=== PATIENT | male | born 1950 | race Caucasian/White ===

== ENCOUNTER 2019-05-01 18:23 | Inpatient (IN) | payer MEDICARE, OTHER, SELFPAY ==
[2019-05-03 02:24] VITALS: BP 153/82; PULSE 77; RESP 17; TEMP 36.5; O2SAT 94
[2019-05-03 04:59] LABS: Add RBC Morph No
[2019-05-03 05:06] LABS: Basophils % 0.4 %; Eosinophils # 0.2 10^3/uL (0.0-0.8); Eosinophils % 2.2 %; Hematocrit 40.4 % (42.0-52.0); Hemoglobin 13.6 g/dL (11.7-16.6); Lymphocytes # 1.8 10^3/uL (0.8-4.8); Mean Corpuscular HGB Conc 33.7 g/dL (30.0-36.0); Mean Corpuscular Hemoglobin 31.6 pg (28.0-34.0); Mean Platelet Volume 9.4 fL (7.4-10.4); Monocytes # 0.7 10^3/uL (0.2-0.9); Monocytes % 10.2 %; Neutrophils # 4.2 10^3/uL (1.8-7.7); Neutrophils % 60.8 %; Nucleated Red Blood Cells % 0 %; Platelet Count 187 10^3/cmm (130-400); Red Cell Distribution Width 12.7 % (12.1-15.1)
[2019-05-03 05:35] LABS: Alanine Aminotransferase 20 U/L (0-41); Albumin Level 4.4 g/dL (3.5-5.2); Alkaline Phosphatase 75 IU/L (40-130); Anion Gap 13.1 (5-19); Aspartate Amino Transferase 14 U/L (0-40); Blood Urea Nitrogen 14 mg/dL (8-23); Calcium 9.5 mg/Dl (8.8-10.2); Carbon Dioxide 24 mmol/L (22-29); Chloride 104 mmol/L (98-107); Creatinine Clr Calc Pharmacy 107.5425; Globulin 1.7 g/dL (1.3-4.6); Glomerular Filtration Rate 96.1 mL/min (90-130); Glucose 188 mg/dL (74-106); Potassium 4.1 mmol/L (3.5-5.1); Sodium 137 mmol/L (136-145); Total Bilirubin 0.6 mg/dL (0.15-1.2); Total Protein 6.1 g/dL (6.6-8.7)
[2019-05-03 06:54] VITALS: BP 144/70; PULSE 81; RESP 18; TEMP 36.8; O2SAT 94
--- NOTE | 2019-05-03 08:42 | P.PN_ITS ---
Subjective Subjective: Interval history: Nii has had an uneventful night. No further chest pain. He has been up and around some. No syncope or presyncope. The right radial artery site is unremarkable. No pain or bleeding. Medications: Reviewed: Yes Vitals/I&O/Wt Last Vital Signs Temp 98.3 F 05/03/19 06:54 Pulse 81 05/03/19 06:54 Resp 18 05/03/19 06:54 BP 144/70 05/03/19 06:54 Pulse Ox 94 05/03/19 06:54 05/02/19 05/03/19 05/03/19 22:59 06:59 14:59 Intake Total 400 / 400 360 / 360 Balance 400 / 400 360 / 360 Weight last 48 hrs Weight 240 lb Weight 240 lb 6.08 oz Physical Exam Const: COMMON NORMALS: no apparent distress, average body habitus, oriented x3, no limitations, healthy appearing, alert and well nourished HENMT: COMMON NORMALS: normocephalic, head/scalp atraumatic, hearing grossly normal bilaterally, external ears normal, EAC's normal, TM's normal bilaterally, external nose normal, nasal mucous membranes and turbinates normal, moist oral mucous membranes, oropharynx normal, dentition normal and gingiva normal HEAD & SCALP: normocephalic and atraumatic NOSE: external nose normal and nasal mucous membranes and turbinates normal EXTERNAL EAR: Yes external ears normal EXTERNAL AUDITORY CANAL: EAC's normal TYMPANIC MEMBRANE: TM's normal bilaterally Eye: COMMON NORMALS: PERRL, EOMs intact bilaterally, conjunctivae normal, no scleral icterus, no papilledema, normal visual chun by confrontation and fundi normal bilaterally CONJUNCTIVA: Yes conjunctivae normal PUPIL: Yes PERRL DIRECT OPHTHALMOSCOPY: Yes no papilledema and Yes fundi normal bilaterally Neck/C-Spine: COMMON NORMALS: full ROM, no lymphadenopathy, supple, no meningeal signs, thyroid normal and no carotid bruits THYROID: thyroid normal Chest: COMMONS NORMALS: inspection of chest normal, palpation of chest normal, inspection of breasts normal and palpation of breasts normal Resp: COMMON NORMALS: normal respiratory effort, no retractions, no use of accessory muscles, clear to auscultation bilaterally and percussion normal AUSCULTATION: clear to auscultation bilaterally PERCUSSION: percussion normal GI: COMMON NORMALS: normal to inspection, nondistended, normoactive bowel sounds, soft to palpation, non-tender, no hepatosplenomegaly, no masses and no bruits PALPATION: Yes soft and Yes no hepatosplenomegaly : COMMON NORMALS: Yes external exam normal, Yes testes normal, Yes scrotum normal, Yes no scrotal swelling and Yes no hernias present Extremity: COMMON NORMALS: normal to inspection, full ROM, normal capillary refill, no joint enlargement, no clubbing, cyanosis or edema, no calf tenderness and no pedal edema OTHER: The right radial artery entry site is without sw elling, bleeding or hematoma. There is a 3+ pulse in this area. Neuro: COMMON NORMALS: oriented x3 SENSORIUM/ORIENTATION: Yes alert MENINGEAL SIGNS: Yes no meningeal signs Skin: COMMON NORMALS: no rashes or lesions noted, no wounds, skin turgor normal, no jaundice, no petechiae and no mottling GENERAL SKIN EXAM: no rashes or lesions noted and turgor normal Data Labs: Other Labs: All Labs last 24 hrs except CBC/BMP 05/02/19 05/02/19 05/02/19 02:46 09:38 11:20 RBC MCV MCH MCHC RDW MPV Neut % (Auto) Lymph % (Auto) [place] % (Auto) Eos % (Auto) Baso % (Auto) Neut # (Auto) Lymph # (Auto) [place] # (Auto) Eos # (Auto) Baso # (Auto) Nucleated RBC % (a uto) Nucleated RBCs # GFR Calculation POC Glucose 174 H 167 H Calcium Total Bilirubin AST ALT Alkaline Phosphata se Total Protein Albumin Globulin Triglycerides 195 H Cholesterol 195 LDL Cholesterol, C alc 114 HDL Cholesterol 42 L LDL/HDL Ratio 2.71 Cholesterol/HDL Ra marly 4.64 05/02/19 05/02/19 05/03/19 17:09 20:46 04:39 RBC MCV MCH MCHC RDW MPV Neut % (Auto) Lymph % (Auto) [place] % (Auto) Eos % (Auto) Baso % (Auto) Neut # (Auto) Lymph # (Auto) [place] # (Auto) Eos # (Auto) Baso # (Auto) Nucleated RBC % (a uto) Nucleated RBCs # GFR Calculation 96.1 POC Glucose 150 H 162 H Calcium 9.5 Total Bilirubin 0.6 AST 14 ALT 20 Alkaline Phosphata se 75 Total Protein 6.1 L Albumin 4.4 Globulin 1.7 Triglycerides Cholesterol LDL Cholesterol, C alc HDL Cholesterol LDL/HDL Ratio Cholesterol/HDL Ra marly 05/03/19 04:39 RBC 4.30 MCV 94.0 MCH 31.6 MCHC 33.7 RDW 12.7 MPV 9.4 Neut % (Auto) 60.8 Lymph % (Auto) 26.0 [place] % (Auto) 10.2 Eos % (Auto) 2.2 Baso % (Auto) 0.4 Neut # (Auto) 4.2 Lymph # (Auto) 1.8 [place] # (Auto) 0.7 Eos # (Auto) 0.2 Baso # (Auto) 0.0 Nucleated RBC % (a uto) 0 Nucleated RBCs # 0.0 GFR Calculation POC Glucose Calcium Total Bilirubin AST ALT Alkaline Phosphata se Total Protein Albumin Globulin Triglycerides Cholesterol LDL Cholesterol, C alc HDL Cholesterol LDL/HDL Ratio Cholesterol/HDL Ra marly A&P Additional A&P Information Additional A&P Information: Severe aortic stenosis Nonobstructive coronary artery disease Hypertension Dyslipidemia Diabetes mellitus Prior tobacco abuse COPD Obesity Alcohol overuse Plan: I will add a long-acting nitrate today. From a cardiac standpoint, he can go home on the current medications plus the long-acting nitrate. He should not lift anything more than 5 pounds for 2 days with the right arm. Otherwise he can have essentially normal activity aside from vigorous activities. Tomorrow, I will call [facility] in [place] and get him set up to be seen for consideration for TAVR. I will take a copy of the ultrasound and the cardiac catheterization and send them over. We will set him up for an appointment in about a week to check his right radial artery site and his chemistry panel. 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
[2019-05-03] MEDS: sodium chloride 0.9% 1,000 ML 100 ML IV ×2 (09:24→09:32)
[2019-05-03] MEDS: metoprolol tartrate 25 mg Tablet 12.5 MG PO (09:26)
[2019-05-03] MEDS: famotidine 20 mg Tablet PO (09:26)
[2019-05-03] MEDS: aspirin 325 mg EC Tablet PO (09:26)
[2019-05-03] MEDS: isosorbide mononitrate ER 30 mg Tablet PO (09:30)
[2019-05-03 11:00] VITALS: BP 129/70; PULSE 72; RESP 13; TEMP 36.6; O2SAT 94
[2019-05-03 12:31] LABS: Glucose Point of Care 166 mg/dL (70-110)
[2019-05-03 12:31] LABS: Glucose Point of Care 185 mg/dL (70-110)
--- NOTE | 2019-05-03 13:21 | PM.DCS ---
Discharge Providers Date of Admission: 05/02/19 09:15 Date of Discharge: 05/03/19 Attending Provider at Admission: Flako Rivero MD Attending Provider at Discharge: Flako Rivero MD Primary Care Provider: Dimitris Greenfield Jr, MD Diagnoses at Discharge Discharge Diagnosis (1) Aortic stenosis, severe: Status: Acute Problem details: Refer for TAVR to [place]. Cardiology to arrange (2) Hypertension: Status: Acute Problem details: Controlled Reason for Visit Reason for Visit: Reason For Visit: Angina;Aortic Stenosis Hospital Course Hospital Course: Nii is a 68-year-old male that presented to the hospital with chest pain. Troponin was slightly elevated. Symptoms were very concerning for unstable angina. Cardiology was consulted. Angiogram was performed on May 02. This demonstrated severe aortic stenosis, nonobstructive coronary disease. It was thought he could benefit from TAVR. The following day, with no direct complications from angiogram and normal creatinine it was thought he could be discharged to home, for follow-up in [place] for consideration of TAVR. Physical Exam Narrative: EXAM NARRATIVE: General exam no apparent distress Cardiovascular regular rate and rhythm with a 3/6 systolic murmur Lungs clear Abdomen is soft with positive bowel sounds Extremities no cyanosis clubbing or edema Discharge Data Data Completed and Pending: Labs from last 24 hours 05/03/19 05/03/19 05/03/19 11:54 08:09 04:39 WBC 7.0 RBC 4.30 Hgb 13.6 Hct 40.4 L MCV 94.0 MCH 31.6 MCHC 33.7 RDW 12.7 Plt Count 187 MPV 9.4 Neut % (Auto) 60.8 Lymph % (Auto) 26.0 [place] % (Auto) 10.2 Eos % (Auto) 2.2 Baso % (Auto) 0.4 Neut # (Auto) 4.2 Lymph # (Auto) 1.8 [place] # (Auto) 0.7 Eos # (Auto) 0.2 Baso # (Auto) 0.0 Nucleated RBC % (a uto) 0 Nucleated RBCs # 0.0 Sodium Potassium Chloride Carbon Dioxide Anion Gap BUN Creatinine GFR Calculation Glucose POC Glucose 185 166 Calcium Total Bilirubin AST ALT Alkaline Phosphata se Total Protein Albumin Globulin Triglycerides Cholesterol LDL Cholesterol, C alc HDL Cholesterol LDL/HDL Ratio Cholesterol/HDL Ra marly 05/03/19 05/02/19 05/02/19 04:39 20:46 17:09 WBC RBC Hgb Hct MCV MCH MCHC RDW Plt Count MPV Neut % (Auto) Lymph % (Auto) [place] % (Auto) Eos % (Auto) Baso % (Auto) Neut # (Auto) Lymph # (Auto) [place] # (Auto) Eos # (Auto) Baso # (Auto) Nucleated RBC % (a uto) Nucleated RBCs # Sodium 137 Potassium 4.1 Chloride 104 Carbon Dioxide 24 Anion Gap 13.1 BUN 14 Creatinine 0.8 GFR Calculation 96.1 Glucose 188 H POC Glucose 162 H 150 H Calcium 9.5 Total Bilirubin 0.6 AST 14 ALT 20 Alkaline Phosphata se 75 Total Protein 6.1 L Albumin 4.4 Globulin 1.7 Triglycerides Cholesterol LDL Cholesterol, C alc HDL Cholesterol LDL/HDL Ratio Cholesterol/HDL Ra marly 05/02/19 05/02/19 05/02/19 11:20 09:38 02:46 WBC RBC Hgb Hct MCV MCH MCHC RDW Plt Count MPV Neut % (Auto) Lymph % (Auto) [place] % (Auto) Eos % (Auto) Baso % (Auto) Neut # (Auto) Lymph # (Auto) [place] # (Auto) Eos # (Auto) Baso # (Auto) Nucleated RBC % (a uto) Nucleated RBCs # Sodium Potassium Chloride Carbon Dioxide Anion Gap BUN Creatinine GFR Calculation Glucose POC Glucose 167 H 174 H Calcium Total Bilirubin AST ALT Alkaline Phosphata se Total Protein Albumin Globulin Triglycerides 195 H Cholesterol 195 LDL Cholesterol, C alc 114 HDL Cholesterol 42 L LDL/HDL Ratio 2.71 Cholesterol/HDL Ra marly 4.64 Vitals: Last Vital Signs Temp 97.9 F 05/03/19 11:00 Pulse 72 05/03/19 11:00 Resp 13 05/03/19 11:00 BP 129/70 05/03/19 11:00 Pulse Ox 94 05/03/19 11:00 Discharge Plan Discharge Patient Disposition: Home, Self-Care Condition: Stable Prescriptions: New isosorbide mononitrate 30 mg Tablet Extended Release 24 Hr 30 mg PO DAILY Qty: 30 RF: 0 metoprolol tartrate 25 mg Tablet 12.5 mg PO BID Qty: 60 RF: 0 Discontinued sildenafil 100 mg tablet 100 mg PO PRN PRN (Reason: Erectile Dysfunction) RF: 0 No Action Aspir-81 81 mg Tablet,Delayed Release (Dr/Ec) 81 mg PO DAILY RF: 0 simvastatin 20 mg tablet 20 mg PO BEDTIME RF: 0 metformin 1,000 mg Tablet 1,000 mg PO BID RF: 0 lisinopril 10 mg tablet 10 mg PO DAILY RF: 0 Discharge Orders: Discharge Order (Routine); Ordered 05/03/19 Ordered By: Flako Rivero Referrals: Dimitris Greenfield Jr, MD [Primary Care Provider] - 2 weeks (Keep regular follow-up with primary care provider) Discharge Diet: Diabetic Discharge Activity: Limit activity as instructed Activity Restrictions/Additional Instructions: No lifting over 5 pounds with the right arm for 2 days. My office will call him tomorrow to set up follow-up appointment for 1 week. I will make a referral to [facility] in [place] for consideration of TAVR. Do not take your metformin until Wednesday Discharge Attestations Time Spent in Discharge Care*: greater than 30 min Quality Metrics Clinical Quality Measures During this hospital stay, did patient experience: None Coding Level of Care Code Acute Horticultural Farmer for Sean Grace Diagnoses Aortic stenosis, severe I35.0 Hypertension I10
[2019-05-03 13:38] VITALS: BP 129/70; PULSE 72; RESP 13; TEMP 36.6; O2SAT 94
== END 2019-05-03 14:26 | disposition home or self-care (01) | DRG 287 ==
PROVIDERS: Admitting Provider Internal Medicine; Family Provider Family Medicine; PCP Family Medicine; Visit Provider Internal Medicine
DX: I35.0 Nonrheumatic aortic (valve) stenosis (principal); Z79.84 Long term (current) use of oral hypoglycemic drugs; Z79.82 Long term (current) use of aspirin; E11.9 Type 2 diabetes mellitus without complications; I10 Essential (primary) hypertension; E78.5 Hyperlipidemia, unspecified; E66.9 Obesity, unspecified; Z68.35 Body mass index [BMI] 35.0-35.9, adult; J44.9 Chronic obstructive pulmonary disease, unspecified; Z87.891 Personal history of nicotine dependence; I25.10 Atherosclerotic heart disease of native coronary artery without angina pectoris
CPT/HCPCS: 36415; 36416; 71045; 80053; 80061; 82962; 84443; 84484; 85025; 85610; 85730; 93005; 93306; 93460; 93571; 94664; 96372; 99284; 99285; C1751; C1769; C1887; C1894; G0378; J0153; J1644; J1650; J1815; J2001; J2250; J3010; J3490; J7030; Q0163; Q9967

== ENCOUNTER 2020-05-09 08:32 | Outpatient (CLI) | payer MEDICARE, OTHER, SELFPAY ==
--- NOTE | 2020-05-09 09:20 | CT_ITS ---
WS: [id number] CT ABDOMEN PELVIS TECHNIQUE: Contrast-enhanced CT of the abdomen and pelvis with coronal and sagittal reformatted image s. CLINICAL INFORMATION: RIGHT LOWER QUADRANT PAIN COMPARISON: None. DLP: 1217.[address] scans at [facility] use at least one of these dose optimization techniques: automat ed exposure control; mA and/or kV adjustment per patient size (includes targeted exams where dose is matched to clinical indication); or iterative reconstruction. FINDINGS: Diffuse fatty infiltration of the liver. Normal portal vein and splenic vein. Normal gallbladder. Nor mal gastroesophageal junction. Lung bases are well aerated. Splenic granulomas. Mild pancreatic atrop hy. Normal caliber abdominal aorta. Aortic calcification. Adrenal glands are normal. Normal renal enh ancement. No hydronephrosis. Small bilateral renal cysts. No obstructing renal or ureteral calculi. P elvic phleboliths. Sigmoid diverticulosis. No evidence of acute diverticulitis. No periaortic or retroperitoneal lymphad enopathy. No pelvic lymphadenopathy. No inguinal lymphadenopathy. Slight anterolisthesis L4 on L5 and L5 on S1. CT/CT abdomen pelvis w con* [id number] IMPRESSION: 1. Mild diffuse fatty infiltration of the liver. 2. No hydronephrosis in either kidney. Small bilateral renal cysts. 3. Sigmoid diverticulosis. No evidence of acute diverticulitis. 4. No evidence of high-grade small or large bowel obstruction. 5. No abdominal or pelvic lymphadenopathy. 6. Normal appendix in the right lower quadrant.
[2020-05-09] MEDS: iohexol 300 mg/mL 100 mL Btl IV ×2 (11:07→11:22)
== END 2020-05-09 08:33 | disposition home or self-care (01) ==
LOC: RADWPI 08:39
PROVIDERS: PCP Family Medicine; Visit Provider Family Medicine
DX: R10.31 Right lower quadrant pain (principal); K57.30 Diverticulosis of large intestine without perforation or abscess without bleeding; Q61.02 Congenital multiple renal cysts; K76.0 Fatty (change of) liver, not elsewhere classified
CPT/HCPCS: 74177; Q9967

== ENCOUNTER → 2020-06-27 15:45 | Outpatient (BNVA) | payer MEDICARE, OTHER, SELFPAY | PROVIDERS: PCP Family Medicine; Visit Provider Internal Medicine | DX: E11.9 Type 2 diabetes mellitus without complications (principal); Z86.010 Personal history of colon polyps; Z95.3 Presence of xenogenic heart valve; E78.5 Hyperlipidemia, unspecified; I10 Essential (primary) hypertension | CPT/HCPCS: 80053; 80061; 83036; 84443; 85025 ==

== ENCOUNTER → 2020-07-02 12:08 | Outpatient (BNVA) | payer MEDICARE, OTHER, SELFPAY | PROVIDERS: PCP Family Medicine; Visit Provider Internal Medicine | DX: Z01.84 Encounter for antibody response examination (principal) | CPT/HCPCS: 87635 ==

== ENCOUNTER 2020-07-08 08:00 | Day surgery (SDC) | payer MEDICARE, OTHER, SELFPAY ==
[2020-07-04 13:09] VITALS: BMI 32.1
[2020-07-08 08:20] VITALS: BP 140/88; PULSE 75; RESP 16; TEMP 36.4; O2SAT 97
[2020-07-08] MEDS: sodium chloride 0.9% 1,000 ML 30 ML IV (08:43)
[2020-07-08 08:45] LABS: Glucose Point of Care 216 mg/dL (70-110)
--- NOTE | 2020-07-08 08:48 | P.ANESASSM_ITS ---
Pre-Anesthetic Assessment Pre-Anesthetic Assessment: Height/Weight: Height 1.75 m Weight 98.883 kg Temp Pulse Resp BP Pulse Ox 97.5 F L 75 16 140/88 97 07/08/20 08:20 07/08/20 08:20 07/08/20 08:20 07/08/20 08:20 07/08/20 08:20 Preop Diagnosis: sc Proposed Procedure: Operation Date: 07/08/20 09:15 Proposed Procedures p Colonoscopy 15108 z86.010(Not Applicable) - Hao Traylor MD Last intake: Intake Last Liquid Date 07/07/20 Last Solid Date 07/07/20 Social: Social History: Alcohol and No tobacco Exam: Pre-Anes Outpt Exam: alert, oriented x 3, clear to auscultation bilaterally and regular rate & rhythm Airway: Submandibular: WNL Cervical ROM: WNL MP: 2 Dentition: Full History/ROS: No significant history except as noted and No significant complaints Pulmonary: Pulmonary: None reported CV/HEM: CV/HEM: HTN Comments: AVR last year : : None reported Hepatic: Hepatic: None reported GI: GI: None reported Metabolic: Metabolic: DM Musc/skel: Musc/skel: None reported Neuropsych: Neuropsych: None reported Anesthetic Plan: ASA status: 3 Anesthesia: Anesthesia Evaluation and MAC Risk of > 500 ml blood loss (7ml/kg in children): No Meds/Allergies Current Medications: Current Medications Generic Name Dose Route Start Last Admin Trade Name Freq PRN Reason Stop Dose Admin Sodium Chloride 1,000 mls @ 30 ml s/hr 07/08/20 08:15 07/08/20 08:43 Sodium Chloride 0.9% IV 30 mls/hr .Q24H AMAYA Administration PFSH Anesthesia PFSH: Medical History Aortic stenosis, severe Refer for TAVR to [place]. Cardiology to arrange Diabetes Dyslipidemia Hypertension Controlled Obesity BETO (obstructive sleep apnea) Surgical History H/O aortic valve replacement with porcine valve Family History Father Diabetes Social History Smoking and tobacco status: former smoker Alcohol intake: current Alcohol intake frequency: 3 or more drinks per day Alcohol type: beer Lives independently: Yes Household members: spouse Marital status: service: Yes branch: [employer] Current occupational status: retired Current gender identity: Male Data Anesthesia Other Labs: Laboratory Results - last 48 hr 07/08/20 08:40 POC Glucose 216 H Cardiac Studies: No Data to Display
--- NOTE | 2020-07-08 08:59 | W.PM.OPSUD ---
Surgery/Procedure H&P Update DATE OF PROCEDURE: July 08, 2020 DATE H&P PERFORMED: 06/27/20 PREOP DIAGNOSIS: sc PLANNED PROCEDURE: Operation Date: 07/08/20 09:15 Proposed Procedures p Colonoscopy 91674 z86.010(Not Applicable) - Hao Traylor MD
[2020-07-08 09:44] VITALS: BP 151/90; PULSE 69; RESP 18; TEMP 36.6; O2SAT 95
[2020-07-08 09:54] VITALS: BP 138/82; PULSE 65; RESP 18; O2SAT 97
--- NOTE | 2020-07-08 12:22 | ANE.PACU2 ---
Inpatient post-anesthesia follow up: Airway intact: Yes Vital signs: Temperature 97.9 F Pulse Rate 65 Respiratory Rate 18 Blood Pressure 138/82 Pulse Oximetry 97 Oxygen Delivery Me thod Room Air Oxygen Flow Rate 2 Fraction of Inspir ed Oxygen Hydration adequate: Yes Nausea and vomiting: No Pain level: 1 Mental status: Baseline
== END 2020-07-08 10:09 | disposition home or self-care (01) ==
PROVIDERS: PCP Family Medicine; Visit Provider Internal Medicine
PROC: 0DJD8ZZ Inspection of Lower Intestinal Tract, Via Natural or Artificial Opening Endoscopic (ICD-10-PCS; CPT 45378; principal; 2020-07-08 09:15)
DX: K57.30 Diverticulosis of large intestine without perforation or abscess without bleeding (principal); Z86.010 Personal history of colon polyps; Z95.3 Presence of xenogenic heart valve; E78.5 Hyperlipidemia, unspecified; I10 Essential (primary) hypertension; E11.9 Type 2 diabetes mellitus without complications; Z79.82 Long term (current) use of aspirin; Z79.84 Long term (current) use of oral hypoglycemic drugs; E66.9 Obesity, unspecified; Z68.32 Body mass index [BMI] 32.0-32.9, adult; G47.33 Obstructive sleep apnea (adult) (pediatric); Z87.891 Personal history of nicotine dependence
CPT/HCPCS: 36416; 45378; 82962; 96360; J2704; J7030

== ENCOUNTER 2020-07-24 08:17 | Outpatient (CLI) | payer OTHER, SELFPAY ==
--- NOTE | 2020-07-24 08:45 | USCV_ITS ---
Nii Hammond Age: 70 Gender: M : 1950 Exam Date: 07/24/2020 09:01 Ordering Phys: Eron Fay MD Technologist: Sheyla Real [place] [facility] [place]: HYPERTENSION, BP: 124 / 66 HR: 58 Rhythm: Sinus Technical Quality: Adequate MEASUREMENTS (Male / Female) Normal Values 2D ECHO LV Diastolic Diameter PLAX 4.0 cm 4.2 - 5.9 / 3.9 - 5.3 cm LV Systolic Diameter PLAX 1.6 cm IVS Diastolic Thickness 1.5 cm 0.6 - 1.0 / 0.6 - 0.9 cm IVS Systolic Thickness 2.3 cm LVPW Diastolic Thickness 1.4 cm 0.6 - 1.0 / 0.6 - 0.9 cm LVPW Systolic Thickness 2.0 cm LVOT Diameter 2.0 cm LV Ejection Fraction 2D Teich 90.2 % LV Ejection Fraction MOD 2C 62.3 % LV Ejection Fraction 2C AL 65.1 % LA Diameter 3.9 cm LA Width 3.5 cm LA Height 4.8 cm RA Width 3.0 cm RA Height 4.5 cm Aorta at Sinotubular Diameter 3.6 cm M-MODE LV Diastolic Diameter MM 4.4 cm 4.2 - 5.9 / 3.9 - 5.3 cm LV Systolic Diameter MM 2.4 cm LV Ejection Fraction MM Teich 77.7 % IVS Diastolic Thickness MM 1.4 cm 0.6 - 1.0 / 0.6 - 0.9 cm IVS Systolic Thickness MM 1.6 cm LVPW Diastolic Thickness MM 0.9 cm 0.6 - 1.0 / 0.6 - 0.9 cm LVPW Systolic Thickness MM 1.8 cm Aortic Annulus Diameter 3.8 cm LA Ao Ratio MM 0.9 MV E Point Septal Separation 0.6 cm DOPPLER AV Peak Velocity 151.3 cm/s LVOT Peak Velocity 80.0 cm/s AV Area Cont Eq vti 1.9 cm squared AV Area Cont Eq pk 1.7 cm squared MV Peak Velocity 124.0 cm/s MV Area PHT 2.2 cm squared Mitral E to A Ratio 0.8 MV E' Velocity 45.5 cm/s Mitral E to MV E' Ratio 10.0 Mitral E to LV E' Lateral Ratio 8.1 Mitral E to LV E' Septal Ratio 13.2 TR Peak Velocity 227.7 cm/s TR Peak Gradient 20.7 mmHg Right Atrial Pressure 3.0 mmHg Pulmonary Artery Systolic Pressu 23.7 mmHg PV Peak Velocity 144.0 cm/s RV Acceleration Time 0.1 s RV Ejection Time 0.4 s RV AcT/ET 0.2 FINDINGS Left Ventricle Normal left ventricular size and systolic function, EF 66 %. No regional wall motion abnormalities. Grade I/IV diastolic dysfunction (abnormal relaxation filling pattern), normal to mildly elevated filling pressures. Right Ventricle The right ventricle is normal in size and function. Right Atrium The right atrium is normal in size. Left Atrium Mildly increased left atrial size. Mitral Valve Thickened mitral valve. Moderate mitral annular calcification. Aortic Valve The bioprosthetic valve at the aortic position appears to be well-seated. Leaflets could not be visualized well. Tricuspid Valve Mild tricuspid valve regurgitation. Pulmonic Valve No gross valvular abnormalities were noted . estimated pulmonary artery peak systolic pressure of 24 mmHg Pericardium Normal pericardium without effusion. Aorta Normal ascending aorta dimension. CONCLUSIONS Normal left ventricular size and systolic function, EF 66 %. No regional wall motion abnormalities. Grade I/IV diastolic dysfunction (abnormal relaxation filling pattern), normal to mildly elevated filling pressures. The bioprosthetic valve at the aortic position appears to be well-seated. The peak velocity across the aortic valve is 1.5 m/s. Thickened mitral valve. Moderate mitral annular calcification. Mild tricuspid valve regurgitation. Estimated pulmonary artery peak systolic pressure of 24 mmHg There is no pericardial effusion. There are no intracardiac masses. Compared to the study from 05/02/2019, the aortic valve appears to have replaced Dr Po Oliver MD [facility] (Electronically Signed) Final Date: 24 July 2020 19:08 S
== END 2020-07-24 08:18 | disposition home or self-care (01) ==
LOC: US 08:18
PROVIDERS: PCP Internal Medicine; Visit Provider Orthopaedic Surgery
DX: I10 Essential (primary) hypertension (principal); I08.1 Rheumatic disorders of both mitral and tricuspid valves; Z95.2 Presence of prosthetic heart valve
CPT/HCPCS: 93306

== ENCOUNTER 2020-12-20 12:32 | Outpatient (CLI) | payer MEDICARE, OTHER, SELFPAY ==
[2020-12-20 13:31] LABS: Anion Gap 12.7 (5-19); Blood Urea Nitrogen 19 mg/dL (8-23); Carbon Dioxide 25 mmol/L (22-29); Chloride 106 mmol/L (98-107); Glomerular Filtration Rate 95.6 mL/min (90-130); Glucose 119 mg/dL (65-115); NT Pro B Type Natriuretic Pept 71 pg/mL (0-125); Osmolality Calculated 291 mOsm/kg (285-295); Potassium 4.7 mmol/L (3.5-5.1); Sodium 139 mmol/L (136-145)
[2020-12-20 14:34] LABS: Prostate Specific Antigen Scr 1.65 ng/mL (0-4)
== END 2020-12-20 12:33 | disposition home or self-care (01) ==
PROVIDERS: PCP Internal Medicine; Visit Provider Internal Medicine
DX: R06.02 Shortness of breath (principal)
CPT/HCPCS: 80048; 83880; G0103

== ENCOUNTER 2021-03-10 17:16 | Emergency (ER) | payer MEDICARE, OTHER, SELFPAY ==
[2021-03-10 18:03] VITALS: BP 145/80; PULSE 65; RESP 18; TEMP 36.6; O2SAT 98; BMI 31.0
--- NOTE | 2021-03-10 18:30 | XRR_ITS ---
PROCEDURE INFORMATION: Exam: XR Right Forearm Exam date and time: 03/10/2021 6:30 PM Age: 70 years old Clinical indication: Lower or forearm; Patient HX: Right forearm pain, laceration on mid forearm from wood hitting it today approx at noon; Additional info: R/O fb or other injury TECHNIQUE: Imaging protocol: XR Right forearm. Views: 2 views. Total images: 2 COMPARISON: No relevant prior studies available. FINDINGS: Bones/joints: No visible evidence of active or acute osseous pathology. Soft tissues: Suspected soft tissue injury flexor surface mid right forearm. No visible radiopaque foreign body or soft tissue emphysema. XR/XR forearm RT 2V [id number] IMPRESSION: 1. No visible acute osseous abnormality. 2. Suspected soft tissue injury flexor surface mid right forearm. 3. No visible radiopaque foreign body or soft tissue emphysema. Radiation Dose CTDIVOL = (mGy): DLP = (mGy-cm)
--- NOTE | 2021-03-10 18:30 | W.ED.WOUNDLC ---
HPI - Wound/Laceration General: Chief Complaint: Wound/Laceration Stated Complaint: Injury to Right Forearm Time Seen by Provider: 03/10/21 18:30 History of Present Illness: HPI narrative: Patient was working outside and injured his right inner forearm. Patient had a branch come down and strike him in the arm. Patient is alert and oriented. Patient denies any injury to the shoulder or head. Patient moves all extremities well. Patient reports that his tetanus is up-to-date. Patient does have a history of artificial valve. Patient was concerned for risk of infection affecting his valve. Review of Systems General: Reports: 10 or more systems reviewed and unremarkable except in HPI and below Skin/Breast: Reports: other (Skin tear/abrasion right forearm) CR[facility]ICAL ACCESS [facility] ED PFSH: Medical History Aortic stenosis, severe 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 Diabetes Dyslipidemia Hypertension Controlled Obesity BETO (obstructive sleep apnea) Surgical History H/O aortic valve replacement with porcine valve Family History Father Diabetes Social History Smoking and tobacco status: former smoker Alcohol intake: current Alcohol intake frequency: few times a week Alcohol type: beer Lives independently: Yes Household members: spouse Marital status: service: Yes branch: [employer] Current occupational status: retired Current gender identity: Male Physical Exam Const: COMMON NORMALS: no acute distress and patient oriented x3 GENERAL APPEARANCE: cooperative HENMT: COMMON NORMALS: normocephalic and Normal external nose present HEAD & SCALP: normal to inspection and normocephalic NOSE: Normal external nose present MOUTH: Normal oral and palatal mucosa present Eye: GENERAL EYE: appearance normal, both eyes and all related structures Neck/C-Spine: COMMON NORMALS: full ROM Chest: COMMONS NORMALS: normal inspection of the chest Resp: COMMON NORMALS: normal respiratory effort EFFORT & INSPECTION: Yes able to speak in complete sentences Cardio: COMMON NORMALS: regular rate and regular rhythm RATE: regular rate RHYTHM: regular rhythm GI: COMMON NORMALS: non-tender Back/Pelvis: COMMON NORMALS: thoracic and lumbar spine normal to inspection Extremity: NARRATIVE EXTREMITY EXAM: Abrasion noted to be about 15 cm extending from the mid forearm to the elbow. There is also a skin tear at the distal site of the abrasion that is approximately 5 cm. No foreign body is noted. Neuro: COMMON NORMALS: patient oriented x3 and moves all extremities Psych: COMMON NORMALS: mental status grossly normal and cooperative Skin: COMMON NORMALS: no rashes or lesions noted GENERAL SKIN EXAM: no rashes or lesions noted Course Vital Signs: Vital signs: Vital Signs Temperature 97.9 F 03/10/21 18:03 Pulse Rate 65 03/10/21 18:03 Respiratory Rate 18 03/10/21 18:03 Blood Pressure 145/80 03/10/21 18:03 Pulse Oximetry 98 03/10/21 18:03 MDM - Wound/Laceration MDM Narrative: Medical decision making narrative: Patient comes in for injury to the right forearm. On exam we note a skin abrasion with a distal skin tear. No foreign bodies were noted. No sign of fracture was noted underlying wound. Patient had good range of motion of the hand. Patient reported that his tetanus was up-to-date. Differential diagnosis includes not limited to foreign body, laceration, abrasion, need for prophylaxis tetanus, need for prophylaxis antibiotic. Patient was placed on prophylactic antibiotic therapy due to his heart valve replacement, patient be kept on amoxicillin 500, 3 times a day for 10 days. Instructions for wound care was reviewed with patient. Patient reported understanding agreed to plan. Discharge Plan Discharge Patient Disposition: Home Clinical Impression: Skin tear of forearm without complication Qualifiers: Encounter type: initial encounter Laterality: right Qualified Code(s): S51.811A - Laceration without foreign body of right forearm, initial encounter Abrasion forearm Qualifiers: Encounter type: initial encounter Laterality: right Qualified Code(s): S50.811A - Abrasion of right forearm, initial encounter Condition: Stable Prescriptions: New amoxicillin 500 mg capsule 500 mg PO TID 10 Days Qty: 30 RF: 0 No Action sildenafil 50 mg tablet 50 mg PO DAILY PRN (Reason: Erectile Dysfunction) RF: 0 fluticasone propionate 50 mcg/actuation spray,suspension 1 spray INTRANASAL BID PRN (Reason: Allergy Symptoms) RF: 0 acetaminophen [Tylenol 8 Hour] 650 mg tablet extended release 650 mg PO .daily RF: 0 lisinopril 20 mg tablet 10 mg PO DAILY RF: 0 metoprolol succinate 25 mg tablet extended release 24 hr 12.5 mg PO DAILY Qty: 90 RF: 3 (DME) FreeStyle Lite Strips Strip See Rx Instructions .Route Qty: 100 RF: 3 furosemide [Lasix] 20 mg tablet 20 mg PO BID Qty: 60 RF: 0 aspirin [Aspir-81] 81 mg Tablet,Delayed Release (Dr/Ec) 81 mg PO DAILY RF: 0 simvastatin 20 mg tablet 20 mg PO BEDTIME RF: 0 metformin 1,000 mg tablet,ER eitan.retention 24 hr 500 mg PO BID RF: 0 Discharge Orders: Discharge ED (Routine); Ordered 03/10/21 Ordered By: Binu Bell Referrals: Hao Traylor MD [Primary Care Provider] - Discharge Diet: Usual diet Discharge Activity: Increase activity as tolerated Patient Instructions: Skin Tear (ED), Opioid Safety Activity Restrictions/Additional Instructions: Keep wound clean and dry especially for the next 2 days. After that you can gently wash the wound with some mild soap and water. Activity as tolerated. Follow-up with primary care as needed. Return to the ER for worsening symptoms such as high fever greater than 100.4, increased redness and swelling to the arm, or new concerns. Coding Level of Care Code ED Construction Project Mgr for Sean Grace
[2021-03-10] MEDS: amoxicillin 500 mg Capsule PO (18:44)
== END 2021-03-10 19:53 | disposition home or self-care (01) ==
PROVIDERS: Emergency Provider Nurse Practitioner Family; PCP Internal Medicine
DX: S51.811A Laceration without foreign body of right forearm, initial encounter (principal); S50.811A Abrasion of right forearm, initial encounter; W22.8XXA Striking against or struck by other objects, initial encounter; Z87.891 Personal history of nicotine dependence; I35.0 Nonrheumatic aortic (valve) stenosis; Z79.84 Long term (current) use of oral hypoglycemic drugs; Z79.82 Long term (current) use of aspirin; E11.9 Type 2 diabetes mellitus without complications
CPT/HCPCS: 73090; 99283

== ENCOUNTER → 2021-04-02 14:00 | Outpatient (BNVA) | payer MEDICARE, OTHER, SELFPAY | PROVIDERS: PCP Internal Medicine; Visit Provider Internal Medicine | DX: E11.9 Type 2 diabetes mellitus without complications (principal) | CPT/HCPCS: 80053; 80061; 83036; 84443 ==

== ENCOUNTER → 2021-08-21 12:40 | Outpatient (BNVA) | payer MEDICARE, OTHER, SELFPAY | PROVIDERS: PCP Internal Medicine; Visit Provider Internal Medicine | DX: I10 Essential (primary) hypertension (principal); Z95.3 Presence of xenogenic heart valve; E78.5 Hyperlipidemia, unspecified; E11.9 Type 2 diabetes mellitus without complications; I35.0 Nonrheumatic aortic (valve) stenosis; Z87.891 Personal history of nicotine dependence; Z79.84 Long term (current) use of oral hypoglycemic drugs; Z79.82 Long term (current) use of aspirin | CPT/HCPCS: 99214 ==

== ENCOUNTER → 2021-11-04 11:29 | Outpatient (BNVA) | payer MEDICARE, OTHER, SELFPAY | PROVIDERS: PCP Internal Medicine; Visit Provider Nurse Practitioner Family | DX: I10 Essential (primary) hypertension (principal); E11.9 Type 2 diabetes mellitus without complications | CPT/HCPCS: 80053; 80061; 82043; 83036 ==

== ENCOUNTER 2021-11-10 08:12 | Outpatient (CLI) | payer MEDICARE, OTHER, SELFPAY ==
--- NOTE | 2021-11-10 08:45 | USCV_ITS ---
Manish Nii Age: 71 Gender: M : 1950 Exam Date: 11/10/2021 08:43 Ordering Phys: Thomas Rey M.D ([email or web address]) Technologist: Sheyla Real [place] [facility] [place] prosthetic AOV BP: 157 / 83 HR: 65 Rhythm: Sinus Technical Quality: Adequate MEASUREMENTS (Male / Female) Normal Values 2D ECHO LV Diastolic Diameter PLAX 4.3 cm 4.2 - 5.9 / 3.9 - 5.3 cm LV Systolic Diameter PLAX 1.3 cm IVS Diastolic Thickness 1.4 cm 0.6 - 1.0 / 0.6 - 0.9 cm IVS Systolic Thickness 2.2 cm LVPW Diastolic Thickness 1.1 cm 0.6 - 1.0 / 0.6 - 0.9 cm LVPW Systolic Thickness 2.7 cm LV Ejection Fraction 2D Teich 95.0 % LV Ejection Fraction MOD 2C 72.6 % LV Ejection Fraction 2C AL 73.1 % LA Diameter 3.4 cm LA Width 3.1 cm LA Height 5.1 cm RA Width 3.5 cm RA Height 4.4 cm Aorta at Sinotubular Diameter 2.2 cm IVC Diameter 2.2 cm DOPPLER AV Peak Velocity 174.0 cm/s LVOT Peak Velocity 86.0 cm/s MV Peak Velocity 118.0 cm/s MV Area PHT 3.1 cm squared Mitral E to A Ratio 0.9 MV E' Velocity 54.0 cm/s Mitral E to MV E' Ratio 17.3 Mitral E to LV E' Lateral Ratio 15.7 Mitral E to LV E' Septal Ratio 19.6 TR Peak Velocity 212.0 cm/s TR Peak Gradient 18.0 mmHg TR Mean Velocity 159.2 cm/s TR Mean Gradient 11.9 mmHg TR Velocity Time Integral 65.9 cm Right Atrial Pressure 3.0 mmHg Pulmonary Artery Systolic Pressu 21.0 mmHg PV Peak Velocity 126.0 cm/s FINDINGS Left Ventricle Normal left ventricular size. LV systolic function is grossly normal. Regional wall motion normalities cannot be accurately assessed because of poor ultrasonic windows. Grade 1 diastolic dysfunction Right Ventricle Mildly reduced RV function Right Atrium The right atrium is normal in size. Left Atrium The left atrium is dilated Mitral Valve Moderate to severe mitral annular calcification without significant stenosis or prolapse. There is no mitral regurgitation. Aortic Valve Bioprosthetic aortic valve is seen. Normal DVI of 0.6. No significant stenosis is seen. Tricuspid Valve Structurally normal tricuspid valve without significant stenosis. Mild tricuspid regurgitation. Pulmonary artery systolic pressure is normal. Pulmonic Valve Not well-visualized. Pericardium Normal pericardium without effusion. Aorta Mildly dilated ascending aorta IVC CONCLUSIONS Technically limited quality echocardiogram because of poor ultrasonic windows. LV systolic function is grossly normal. Regional wall motion maladies cannot be accurately assessed because of poor ultrasonic windows. Grade 1 diastolic dysfunction. Mildly reduced RV function. Left atrium is dilated. Moderate to severe mitral annular calcification. Bioprosthetic aortic valve is seen. Normal DVI of 0.6. No significant stenosis is seen. Mild tricuspid regurgitation. Mildly dilated ascending aorta Compared to prior echocardiogram from 07/2020, no significant changes are seen Thomas Rey MD (Electronically Signed) Final Date: 22 November 2021 23:13 S
== END 2021-11-10 08:13 | disposition home or self-care (01) ==
LOC: RAD 08:15
PROVIDERS: PCP Internal Medicine; Visit Provider Internal Medicine
DX: R06.02 Shortness of breath (principal)
CPT/HCPCS: 93306

== ENCOUNTER → 2021-11-20 11:13 | Outpatient (BNVA) | payer MEDICARE, OTHER, SELFPAY | PROVIDERS: PCP Nurse Practitioner Family; Visit Provider Internal Medicine | DX: R55 Syncope and collapse (principal); R00.1 Bradycardia, unspecified; I47.1 Supraventricular tachycardia | CPT/HCPCS: 93225 ==

== ENCOUNTER → 2021-12-22 10:47 | Outpatient (BNVA) | payer MEDICARE, OTHER, SELFPAY | PROVIDERS: PCP Nurse Practitioner Family; Visit Provider Nurse Practitioner Family | DX: R35.1 Nocturia (principal); N52.9 Male erectile dysfunction, unspecified; R10.11 Right upper quadrant pain | CPT/HCPCS: 84153 ==

== ENCOUNTER 2021-12-23 08:10 | Outpatient (CLI) | payer MEDICARE, OTHER, SELFPAY ==
--- NOTE | 2021-12-23 08:30 | US_ITS ---
WS: [id number] ULTRASOUND ABDOMEN LIMITED CLINICAL INFORMATION: R10.11 - Right upper quadrant pain COMPARISON: None. FINDINGS: Liver Size: Normal. Craniocaudal length: 16.3 cm. Echogenicity: Diffuse fatty infiltration. Areas of focal fatty sparing. Surface nodularity: None. Mass (size and location): None. Bile ducts Intrahepatic ducts: Normal. Common bile duct diameter: 0.4 cm. Gallbladder Normal. Gallstones: None. Gallbladder sludge: None. Gallbladder wall thickening: None. Pericholecystic fluid: None. Sonographic Malagon sign: Absent. Pancreas Normal as visualized. Right kidney: Normal. Hydronephrosis: None. Size: 11.5 cm x 5.3 cm x 4.7 cm. Abdominal aorta and IVC Visualized portions are normal. Ascites: None. US/US abdomen limited [id number] IMPRESSION: 1. Diffuse fatty infiltration liver. Areas of focal fatty sparing. 2. Remainder unremarkable.
== END 2021-12-23 08:11 | disposition home or self-care (01) ==
LOC: RAD 08:11
PROVIDERS: PCP Nurse Practitioner Family; Visit Provider Nurse Practitioner Family
DX: R10.11 Right upper quadrant pain (principal); K76.0 Fatty (change of) liver, not elsewhere classified
CPT/HCPCS: 76705

== ENCOUNTER → 2022-02-05 12:48 | Outpatient (BNVA) | payer MEDICARE, OTHER, SELFPAY | PROVIDERS: PCP Nurse Practitioner Family; Visit Provider Internal Medicine | DX: I10 Essential (primary) hypertension (principal); Z95.3 Presence of xenogenic heart valve; E78.5 Hyperlipidemia, unspecified; E11.9 Type 2 diabetes mellitus without complications; Z79.84 Long term (current) use of oral hypoglycemic drugs; I35.0 Nonrheumatic aortic (valve) stenosis | CPT/HCPCS: 99214 ==

== ENCOUNTER → 2022-03-24 13:33 | Outpatient (BNVA) | payer MEDICARE, OTHER, SELFPAY | PROVIDERS: PCP Nurse Practitioner Family; Visit Provider Urology | DX: N52.9 Male erectile dysfunction, unspecified (principal) | CPT/HCPCS: 99204 ==

== ENCOUNTER 2022-04-16 20:00 | Outpatient (CLI) | payer MEDICARE, OTHER, SELFPAY | END 2022-04-16 20:01 | disposition home or self-care (01) | LOC: SLEEP 04-17 05:25 | PROVIDERS: PCP Nurse Practitioner Family; Visit Provider Nurse Practitioner Family | DX: G47.33 Obstructive sleep apnea (adult) (pediatric) (principal) | CPT/HCPCS: 95811 ==

== ENCOUNTER 2022-04-24 06:37 | Outpatient (CLI) | payer MEDICARE, OTHER, SELFPAY ==
--- NOTE | 2022-04-24 | ECG_ITS ---
[facility] Test Date: 2022-04-24 Pat Name: Nii Hamomnd Department: Room: Gender: Male Superintendent Mechanical: : 1950 Requested By: Thomas Rey Order Number: [id number] Nilsa MD: Thomas Rey M.D. Interpretive Statements NAME OF STUDY: LEXISCAN SESTAMIBI STRESS TEST INDICATION: [Chest Pain, ] Procedure: At the baseline, the blood pressure was 116/77mmHg with a heart rate of 71 bpm. The electrocardiogram showed normal sinus rhythm, normal axis with normal ST and T's. The Lexiscan was infused over a period of 20 seconds. A total of 0.4 mg of Lexiscan was infused. The stress phase was continued for a total of 5 minutes. Heart rate was at the end of stress phase was 70 bpm and a blood pressure of 121/71 mmHg. The EKG at the peak infusion revealed normal sinus rhythm with no significant ST-T wave changes. Sestamibi was injected 20 seconds after the Lexiscan infusion. Blood pressure at the end of recovery phase was 121/67 mmHg with a heart rate of 71 bpm. Conclusion: 1. Normal EKG response to Lexiscan infusion 2. No Lexiscan induced chest pain or cardiac arrhythmia. 3. Normal blood pressure and heart rate response. 4. Sestamibi/sestamibi perfusion scan pending; see separate report. Electronically Signed On 04-26-2022 13:42:35 AGENCY SALES MANAGEMENT ASSISTANT by Thomas Rey M.D. [id number]
--- NOTE | 2022-04-24 06:48 | NMCV_ITS ---
NM franko perf SPECT r/s* [id number] Hull Nii Age: 71 Gender: M : 1950 Exam Date: 04/24/2022 06:48 Ordering Phys: Thomas Rey M.D ([email or web address]) Technologist: RICKY Goldman Exam Location: [facility] Indications: SHORTNESS OF BREATH STRESS TEST Please see separate stress test report in [facility] for full findings IMAGE PROTOCOL Rest/Stress 1 Lexiscan Day Radiopharmaceutical Dose (mCi) Administration Site Administered by Rest: Tc-99m IV RICKY Whittington Sestamibi Stress:Tc-99m 33.0 IV RICKY Whittington Sestamibi Rest: 24-Apr-2022 60 Discovery 630 Stress: 24-Apr-2022 30 Discovery 630 0.4mg Lexiscan. Images obtained in supine and prone position. SPECT RESULTS Technical Quality: Excellent Raw Data Analysis: Normal Image Corrections: No attenuation or motion correction applied Summed Stress Score: 0 Summed Rest Score: 0 Summed Difference Score: 0 PERFUSION FINDINGS SPECT images demonstrate homogeneous tracer distribution throughout the myocardium. FUNCTIONAL RESULTS (calculated via Gated SPECT) Stress Image LV EF (%): 68 Stress EDV (mL):94 TID: 0.94 Stress ESV (mL):30 FUNCTIONAL FINDINGS: There is normal left ventricular systolic function. IMPRESSIONS 1. Normal myocardial perfusion imaging with no evidence of ischemia 2. LV systolic function is normal Thomas Rey MD (Electronically Signed) Final Date: 24 April 2022 12:07 S
[2022-04-24 07:07] VITALS: BMI 31.0
[2022-04-24 09:20] VITALS: BP 121/67; PULSE 68
== END 2022-04-24 06:38 | disposition home or self-care (01) ==
LOC: CDL 06:39
PROVIDERS: PCP Nurse Practitioner Family; Visit Provider Internal Medicine
DX: R07.9 Chest pain, unspecified (principal); R06.02 Shortness of breath
CPT/HCPCS: 36415; 78452; 93017; 96374; A9500

== ENCOUNTER → 2022-05-11 09:39 | Outpatient (BNVA) | payer MEDICARE, OTHER, SELFPAY | PROVIDERS: PCP Nurse Practitioner Family; Visit Provider Nurse Practitioner Family | DX: E11.9 Type 2 diabetes mellitus without complications (principal); I10 Essential (primary) hypertension; G47.33 Obstructive sleep apnea (adult) (pediatric) | CPT/HCPCS: 80053; 83036 ==

== ENCOUNTER → 2022-08-07 09:34 | Outpatient (BNVA) | payer MEDICARE, OTHER, SELFPAY | PROVIDERS: PCP Nurse Practitioner Family; Visit Provider Internal Medicine | DX: I10 Essential (primary) hypertension (principal); Z95.3 Presence of xenogenic heart valve; E78.5 Hyperlipidemia, unspecified; E11.9 Type 2 diabetes mellitus without complications; Z79.84 Long term (current) use of oral hypoglycemic drugs; Z87.891 Personal history of nicotine dependence; Z79.82 Long term (current) use of aspirin | CPT/HCPCS: 99214 ==

== ENCOUNTER → 2022-10-12 09:49 | Outpatient (BNVA) | payer MEDICARE, OTHER, SELFPAY | PROVIDERS: PCP Nurse Practitioner Family; Visit Provider Nurse Practitioner Family | DX: R53.83 Other fatigue (principal); Z12.5 Encounter for screening for malignant neoplasm of prostate; E11.9 Type 2 diabetes mellitus without complications; E55.9 Vitamin D deficiency, unspecified; I10 Essential (primary) hypertension | CPT/HCPCS: 82306; 83036; 84403; G0103 ==

== ENCOUNTER → 2023-03-10 08:48 | Outpatient (BNVA) | payer MEDICARE, OTHER, SELFPAY | PROVIDERS: PCP Nurse Practitioner Family; Visit Provider Nurse Practitioner Family | DX: E11.9 Type 2 diabetes mellitus without complications (principal); I10 Essential (primary) hypertension | CPT/HCPCS: 80053; 80061; 83036 ==

== ENCOUNTER 2023-07-09 12:20 | Outpatient (CLI) | payer MEDICARE, OTHER, SELFPAY ==
--- NOTE | 2023-07-09 12:45 | USCV_ITS ---
Nii Hammond Age: 73 Gender: M : 1950 Exam Date: 07/09/2023 13:00 Ordering Phys: Thomas Rey M.D ([email or web address]) Technologist: CT [place]am [place] [facility] [place]ication: avr BP: 122 / 75 HR: Rhythm: Sinus Technical Quality: Adequate MEASUREMENTS (Male / Female) Normal Values 2D ECHO LVOT Diameter 2.1 cm LV Ejection Fraction MOD 2C 56.0 % LV Ejection Fraction 2C AL 59.2 % LA Diameter 4.5 cm RA Systolic Volume 4C AL 51.4 ml RA Systolic Volume 4C MOD 49.9 ml Aorta at Sinotubular Diameter 3.2 cm M-MODE LA Ao Ratio MM 1.4 AV Cusp Separation MM 2.0 cm DOPPLER AV Peak Velocity 194.0 cm/s LVOT Peak Velocity 117.0 cm/s AV Area Cont Eq vti 2.5 cm squared AV Area Cont Eq pk 2.1 cm squared MV Peak Velocity 115.0 cm/s MV Area PHT 2.7 cm squared Mitral E to A Ratio 0.8 TV Peak Velocity 224.5 cm/s TR Peak Velocity 243.0 cm/s TR Peak Gradient 23.6 mmHg TV Peak E Velocity 92.0 cm/s Right Atrial Pressure 3.0 mmHg Pulmonary Artery Systolic Pressu 26.6 mmHg PV Peak Velocity 155.0 cm/s FINDINGS Left Ventricle Left ventricle is normal size. LV systolic function is normal with EF of 50 to 55%. No regional wall motion abnormalities are seen. Grade 1 diastolic dysfunction Right Ventricle Normal in size and function Right Atrium Normal in size Left Atrium Dilated Mitral Valve Moderate mitral annular calcification. Mild mitral regurgitation. Aortic Valve Bioprosthetic aortic valve is seen. Mean gradient across aortic valve is 9mmHg. DVI is normal and is 0.7. Tricuspid Valve Mild tricuspid regurgitation. Pulmonary artery systolic pressure is normal Pulmonic Valve Not well visualized Pericardium Normal Aorta Normal in size IVC Appears to be normal CONCLUSIONS LV systolic function is normal with EF of 50-55% Grade 1 diastolic dysfunction Left atrial dilation Mild mitral regurgitation. Bioprosthetic aortic valve seen. DVI is normal. Mild tricuspid regurgitation Compared to prior echocardiogram from 2021, no significant changes are seen Thomas Rey MD (Electronically Signed) Final Date: 23 July 2023 14:26 S
== END 2023-07-09 12:21 | disposition home or self-care (01) ==
LOC: RAD 12:21
PROVIDERS: PCP Nurse Practitioner Family; Visit Provider Internal Medicine
DX: I08.1 Rheumatic disorders of both mitral and tricuspid valves (principal)
CPT/HCPCS: 93306

== ENCOUNTER → 2023-07-16 09:15 | Outpatient (BNVA) | payer MEDICARE, OTHER, SELFPAY | PROVIDERS: PCP Nurse Practitioner Family; Visit Provider Nurse Practitioner Family | DX: I10 Essential (primary) hypertension (principal); Z95.3 Presence of xenogenic heart valve; Z87.891 Personal history of nicotine dependence | CPT/HCPCS: 99214 ==

== ENCOUNTER → 2023-11-15 11:22 | Outpatient (BNVA) | payer MEDICARE, OTHER, SELFPAY | PROVIDERS: PCP Nurse Practitioner Family; Visit Provider Nurse Practitioner Family | DX: I10 Essential (primary) hypertension (principal); E11.9 Type 2 diabetes mellitus without complications | CPT/HCPCS: 80053; 80061; 83036 ==

== ENCOUNTER → 2024-02-03 08:56 | Outpatient (BNVA) | payer MEDICARE, OTHER, SELFPAY | PROVIDERS: PCP Nurse Practitioner Family; Visit Provider Nurse Practitioner Family | DX: I10 Essential (primary) hypertension (principal); E11.9 Type 2 diabetes mellitus without complications | CPT/HCPCS: 80053; 80061; 82043; 83036; 85025 ==

== ENCOUNTER 2024-04-20 09:34 | Outpatient (CLI) | payer MEDICARE, OTHER, SELFPAY ==
--- NOTE | 2024-04-20 10:00 | USCV_ITS ---
ManishNii dowell Age: 73 Gender: M : 1950 Exam Date: 04/20/2024 10:01 Ordering Phys: Thomas Rey M.D ([email or web address]) Technologist: REZA Exam Location: [facility] [place] Indication: H/O AO REPLACMENT BP: 127 / 66 HR: 66 Rhythm: Sinus Technical Quality: Adequate MEASUREMENTS (Male / Female) Normal Values 2D ECHO LV Diastolic Diameter PLAX 5.0 cm 4.2 - 5.9 / 3.9 - 5.3 cm IVS Diastolic Thickness 1.1 cm 0.6 - 1.0 / 0.6 - 0.9 cm IVS Systolic Thickness 2.0 cm LVPW Diastolic Thickness 0.8 cm 0.6 - 1.0 / 0.6 - 0.9 cm LVPW Systolic Thickness 1.4 cm LVOT Diameter 2.0 cm LV Ejection Fraction 2D Teich 69.9 % LV Ejection Fraction MOD 4C 42.2 % LV Ejection Fraction MOD 2C 58.0 % LV Ejection Fraction 2C AL 57.4 % LA Diameter 4.2 cm RA Systolic Volume 4C AL 33.3 ml RA Systolic Volume 4C MOD 33.2 ml LA Sys Volume AL 51.9 cm cubed LA Sys Volume Index AL 23.9 cm cubed/m squared Aorta at Sinotubular Diameter 2.8 cm M-MODE LA Ao Ratio MM 1.3 AV Cusp Separation MM 1.6 cm DOPPLER AV Peak Velocity 227.7 cm/s LVOT Peak Velocity 120.0 cm/s AV Area Cont Eq vti 1.7 cm squared AV Area Cont Eq pk 1.7 cm squared MV Peak Velocity 146.0 cm/s MV Area PHT 2.5 cm squared Mitral E to A Ratio 0.9 TR Peak Velocity 237.0 cm/s TR Peak Gradient 22.5 mmHg TR Mean Velocity 205.0 cm/s TR Mean Gradient 17.6 mmHg TR Velocity Time Integral 57.4 cm TV Peak E Velocity 48.0 cm/s RV Ejection Time 0.3 s FINDINGS Left Ventricle Left ventricle is normal in size. LV systolic function is normal with EF of 55- 60%. No regional wall motion abnormalities are seen. Grade 1 diastolic dysfunction. Right Ventricle Normal in size and function Right Atrium Normal in size Left Atrium Normal in size Mitral Valve Mild to moderate mitral annular calcification. Calcified structure seen in proximity of anterior mitral valve leaflet. Trace mitral regurgitation. Aortic Valve Bioprosthetic aortic valve seen. Mild aortic stenosis with aortic valve area of 1.89 cm squared and mean gradient of 15 mmHg. DVI is normal and is 0.47 Tricuspid Valve Mild tricuspid regurgitation. Insufficient TR jet to calculate RVSP Pulmonic Valve Not well visualized Pericardium Normal Aorta Normal in size IVC Not visualized CONCLUSIONS LV systolic function is normal with EF 55 to 60%. Grade 1 diastolic dysfunction. Mild to moderate mitral annular calcification. Calcified structure seen in proximity of anterior mitral valve leaflet ( has not changed over last few years). Trace mitral regurgitation. Bioprosthetic aortic valve seen. Mild aortic stenosis Mild tricuspid regurgitation Compared to prior echocardiogram from 07/2023, no significant changes are seen Thomas Rey MD (Electronically Signed) Final Date: 22 April 2024 18:24 S
== END 2024-04-20 09:35 | disposition home or self-care (01) ==
LOC: RAD 09:35
PROVIDERS: PCP Nurse Practitioner Family; Visit Provider Internal Medicine
DX: I35.0 Nonrheumatic aortic (valve) stenosis (principal); I50.30 Unspecified diastolic (congestive) heart failure; I34.81 Nonrheumatic mitral (valve) annulus calcification; R06.00 Dyspnea, unspecified; Z95.3 Presence of xenogenic heart valve
CPT/HCPCS: 93306

== ENCOUNTER 2024-04-23 10:13 | Emergency (ER) | payer MEDICARE, OTHER, SELFPAY ==
[2024-04-23] VITALS (9 sets, daily range): BP systolic 111–149; BP diastolic 70–87; PULSE 63–66; RESP 18; TEMP 36.6; O2SAT 95–97; BMI 30.5
[2024-04-23 11:07] LABS: Basophils # 0.1 10^3/uL (0.0-0.1); Basophils % 0.8 %; Eosinophils # 0.3 10^3/uL (0.0-0.8); Lymphocytes % 26.2 %; Mean Corpuscular HGB Conc 33.9 g/dL (30-55); Mean Corpuscular Hemoglobin 30.7 pg (27-33); Mean Corpuscular Volume 90.5 fl (82-101); Mean Platelet Volume 8.9 fL (7.4-10.4); Monocytes # 0.7 10^3/uL (0.2-0.9); Monocytes % 9.4 %; Neutrophils % 59.5 %; Nucleated Red Blood Cells % 0 %; Platelet Count 218 10^3/cmm (157-399); Red Blood Count 4.86 10^6/uL (3.85-5.65); Red Cell Distribution Width 12.5 % (12.1-15.1); White Blood Count 7.56 10^3/uL (3.29-11.43)
[2024-04-23 11:22] LABS: Lactic Sepsis W/Reflex 1.5 mmol/L (0.5-2.2)
[2024-04-23 11:23] LABS: Alanine Aminotransferase 17 U/L (0-41); Albumin Level 4.2 g/dL (3.5-5.2); Alkaline Phosphatase 87 U/L (40-130); Anion Gap 16.1 (5-19); Aspartate Amino Transferase 15 U/L (0-40); Blood Urea Nitrogen 19 mg/dL (8-23); C Reactive Protein 41.5 mg/L (0.0-4.9); Calcium 9.5 mg/dL (8.5-10.5); Carbon Dioxide 25 mmol/L (22-29); Chloride 100 mmol/L (98-107); Creatinine Clr Calc Pharmacy 82.6929; Glucose 175 mg/dL (65-115); Osmolality Calculated 289 mOsm/kg (285-295); Potassium 5.1 mmol/L (3.5-5.1); Sodium 136 mmol/L (136-145); Total Bilirubin 0.5 mg/dL (0.15-1.2); Total Protein 7.2 g/dL (6.6-8.7)
--- NOTE | 2024-04-23 11:34 | CTR_ITS ---
PROCEDURE INFORMATION: Exam: CT Abdomen And Pelvis With Contrast Exam date and time: 04/23/2024 12:10 PM Age: 73 years old Clinical indication: Abdominal pain; Localized; Right lower quadrant (rlq); Additional info: Right lower quadrant abdominal pain TECHNIQUE: Imaging protocol: Computed tomography of the abdomen and pelvis with contrast. Radiation optimization: All CT scans at this facility use at least one of these dose optimization techniques: automated exposure control; mA and/or kV adjustment per patient size (includes targeted exams where dose is matched to clinical indication); or iterative reconstruction. Contrast material: OMNIPAQUE 350; Contrast volume: 100 ml; Contrast route: INTRAVENOUS (IV); COMPARISON: CT abdomen pelvis w con* [id number] 05/09/2020 11:04 AM RADIATION DOSE METRICS: Total DLP (mGy-cm): 870.13 FINDINGS: Lungs: Bibasilar atelectasis. Heart: Post aortic valve replacement. There is calcification of the mitral valve annulus. Coronary arteries: There is mild atherosclerotic calcification of the coronary arteries. Liver: Normal. No mass. Gallbladder and biliary ducts: Normal. No calcified stones. No ductal dilation. Pancreas: Normal. No ductal dilation. Spleen: There are multiple calcified granulomas of the spleen. Adrenal glands: Normal. No mass. Kidneys and ureters: Simple cyst in the interpolar region of the right kidney measuring 1.5 cm. There is no evidence of hydronephrosis. Stomach and bowel: There is diverticulitis of the sigmoid colon with wall thickening and surrounding fat stranding. Appendix: No evidence of appendicitis. Intraperitoneal space: Unremarkable. No free air. No significant fluid collection. Vasculature: Calcified atheromas of the visualized arteries. There are numerous benign phleboliths in the pelvis. Lymph nodes: Unremarkable. No enlarged lymph nodes. Urinary bladder: Unremarkable as visualized. Reproductive: Unremarkable as visualized. Bones/joints: There are mild degenerative changes of the hip joints. The pubic symphysis demonstrates mild degenerative changes. There are mild degenerative changes of the sacroiliac joints. Moderate bilateral facet joint arthropathy at L4-L5 and L5-S1 with mild anterolisthesis. There are diffuse enthesopathic changes consistent with benign diffuse idiopathic skeletal hyperostosis (DISH). Soft tissues: Bilateral fat containing inguinal hernias. CT/CT abdomen pelvis w con* [id number] IMPRESSION: Sigmoid diverticulitis with no perforation or abscess formation. COMMENTS: Consistent with the [employer]'s Incidental Findings Committee white paper (J Am [place] Radiol 2018): Any incidental renal lesion less than 1 cm or classified as too small to characterize, or any incidental cystic renal lesion characterized as simple-appearing, is likely benign. No follow-up imaging is recommended for these lesions per consensus recommendations based on imaging criteria.
[2024-04-23] MEDS: iohexol 350 mg/mL 500 mL Btl (per mL) IV (12:11)
--- NOTE | 2024-04-23 12:30 | ED_ITS ---
HPI - Abdominal Pain 2 General: Chief Complaint: Abdominal Pain Stated Complaint: rt side abd pain Time Seen by Provider: 04/23/24 10:48 History of Present Illness: Patient presents to the ER with complaints of right lower quadrant abdominal pain that also radiates down to his right side scrotum for the last 3 days. Patient [place] any nausea vomiting or diarrhea. Patient has been having issues with constipation but this was resolved with prune juice. Related Data Home Medications Medication Instructions Recorded Confirmed acetaminophen 650 mg 650 mg PO .daily 06/27/20 04/23/24 tablet,extended release (Tylenol 8 Hour) oxygen-air delivery systems 03/24/22 04/23/24 cholecalciferol (vitamin D3) 50 100 mcg PO DAILY 05/05/23 04/23/24 mcg (2,000 unit) tablet aspirin 81 mg tablet,delayed 81 mg PO DAILY heart 04/23/24 04/23/24 release (Abdoulaye Low Dose Aspirin) coenzyme Q10 100 mg capsule 100 mg PO BID 04/23/24 04/23/24 (CoQ-10) metformin 500 mg tablet,extended 1,000 mg PO BID 04/23/24 04/23/24 release 24 hr multivitamin 1 tab PO DAILY 04/23/24 04/23/24 vitamin B complex 1 cap PO DAILY 04/23/24 04/23/24 vitamin C 60 mg-zinc gluconate 5 1 prakash PO DAILY 04/23/24 04/23/24 mg-elderberry fruit 12.5 mg lozenges (Sambucus Elderberry (zinc gluconate)) Previous Rx's Medication Instructions Recorded CPAP #1 ea 04/22/22 blood sugar diagnostic (FreeStyle #100 ea 05/05/23 Lite Strips) fluticasone propionate 50 1 spray intranasal BID PRN Allergy 05/05/23 mcg/actuation nasal Symptoms #16 grams spray,suspension metronidazole 1 % topical gel 1 applic topical DAILY #60 grams 05/05/23 (Metrogel) lisinopril 20 mg tablet 20 mg PO DAILY #90 tabs 11/15/23 metoprolol succinate 25 mg 12.5 mg (1/2 x 25 mg) PO DAILY #90 11/15/23 tablet,extended release 24 hr tabs sildenafil 100 mg tablet See Rx Instructions .Route 11/17/23 .COMPLEX #30 tabs simvastatin 20 mg tablet 20 mg PO DAILY #90 tabs 11/22/23 ciprofloxacin HCl 500 mg tablet 500 mg PO Q12H #20 tabs 04/23/24 metronidazole 500 mg tablet 500 mg PO Q8H #30 tabs 04/23/24 Allergies Allergy/AdvReac Type Severity Reaction Status Date / Time hydralazine Allergy Severe shock Verified 02/04/24 08:40 Review of Systems 2 General: Reports: 10 or more systems reviewed and unremarkable except in HPI and below PFSH ED 2 PFSH: Medical History Dyslipidemia BETO (obstructive sleep apnea) Hypertension Controlled Obesity Diabetes Aortic stenosis, severe 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 Surgical History H/O aortic valve replacement with porcine valve Family History Father Diabetes Social History Smoking and tobacco/nicotine status: never used tobacco/nicotine Quit status (tobacco/nicotine): has quit using Year quit tobacco: 1987 Alcohol intake: current Alcohol intake frequency: few times a week Alcohol type: beer Substance/Drug Use: never Lives independently: Yes Household members: spouse Marital status: service: Yes branch: [employer] Current occupational status: retired Current gender identity: Male Physical Exam 2 Const: COMMON NORMALS: no acute distress, average body habitus, patient oriented x3, no limitations, healthy appearing, alert and well nourished HENMT: COMMON NORMALS: normocephalic, atraumatic, hearing grossly normal bilaterally, external ears normal, Normal external nose present and moist oral mucous membranes HEAD & SCALP: normocephalic and atraumatic NOSE: Normal external nose present EXTERNAL EAR: Yes external ears normal Neck/C-Spine: COMMON NORMALS: no JVD Chest: COMMONS NORMALS: normal inspection of the chest and normal palpation of entire chest wall Resp: COMMON NORMALS: normal respiratory effort, No retractions, No use of accessory muscles and clear to auscultation bilaterally AUSCULTATION: clear to auscultation bilaterally Cardio: COMMON NORMALS: no JVD, regular rate, regular rhythm, S1 normal heart sound present, S2 normal heart sound present, No gallops present (Cardio), No clicks present (Cardio), No murmurs present (Cardio) and No rub (Cardio) R ATE: regular rate RHYTHM: regular rhythm HEART SOUNDS: S1 normal heart sound present and S2 normal heart sound present GI: COMMON NORMALS: Normal to inspection, nondistended, normoactive bowel sounds present, Soft to palpation, No hepatosplenomegaly present and no masses; negative for non-tender (Tender to palpate over right lower quadrant) P ALPATION: Yes Soft to palpation and Yes No hepatosplenomegaly present Neuro: COMMON NORMALS: patient oriented x3 SENSORIUM/ORIENTATION: Yes alert Course 2 Vital Signs: Vital signs: Vital Signs Temperature 97.8 F 04/23/24 10:20 Pulse Rate 66 04/23/24 10:20 Respiratory Rate 18 04/23/24 10:20 Blood Pressure 117/72 04/23/24 14:00 Pulse Oximetry 96 04/23/24 14:00 Oxygen Delivery Me thod Room Air 04/23/24 10:20 MDM - Abdominal Pain Medical Decision Making Lab work was reviewed as well as CT scan, CT scan showed sigmoid diverticulitis, patient be started on Cipro and Flagyl and discharged home. Medical Records I reviewed the patient's medical records. Lab Data I reviewed the patient's lab results. 04/23/24 10:58 04/23/24 10:58 Labs/Radiology: Radiology Impressions Abdomen/Pelvis CT 04/23/24 11:34 IMPRESSION: Sigmoid diverticulitis with no perforation or abscess formation. COMMENTS: Consistent with the [employer] [place] [employer]'s Incidental Findings Committee white paper (J [facility] [place] [employer]iol 2018): Any incidental renal lesion less than 1 cm or classified as too small to characterize, or any incidental cystic renal lesion characterized as simple-appearing, is likely benign. No follow-up imaging is recommended for these lesions per consensus recommendations based on imaging criteria. Laboratory Results WBC 7.56 10^3/uL (3.29-11.43) 04/23/24 10:58 RBC 4.86 10^6/uL (3.85-5.65) 04/23/24 10:58 Hgb 14.90 g/dL (11.27-16.99) 04/23/24 10:58 Hct 44.0 % (37-53) 04/23/24 10:58 MCV 90.5 fl (82-101) 04/23/24 10:58 MCH 30.7 pg (27-33) 04/23/24 10:58 MCHC 33.9 g/dL (30-55) 04/23/24 10:58 RDW 12.5 % (12.1-15.1) 04/23/24 10:58 Plt Count 218 10^3/cmm (157-399) 04/23/24 10:58 MPV 8.9 fL (7.4-10.4) 04/23/24 10:58 Neut % (Auto) 59.5 % 04/23/24 10:58 Lymph % (Auto) 26.2 % 04/23/24 10:58 [place] % (Auto) 9.4 % 04/23/24 10:58 Eos % (Auto) 4.0 % 04/23/24 10:58 Baso % (Auto) 0.8 % 04/23/24 10:58 Neut # (Auto) 4.50 10^3/uL (1.8-7.7) 04/23/24 10:58 Lymph # (Auto) 2.0 10^3/uL (0.8-4.8) 04/23/24 10:58 [place] # (Auto) 0.7 10^3/uL (0.2-0.9) 04/23/24 10:58 Eos # (Auto) 0.3 10^3/uL (0.0-0.8) 04/23/24 10:58 Baso # (Auto) 0.1 10^3/uL (0.0-0.1) 04/23/24 10:58 Nucleated RBC % (auto) 0 % 04/23/24 10:58 Nucleated RBCs # 0.0 /100WBC 04/23/24 10:58 Sodium 136 mmol/L (136-145) 04/23/24 10:58 Potassium 5.1 mmol/L (3.5-5.1) 04/23/24 10:58 Chloride 100 mmol/L (98-107) 04/23/24 10:58 Carbon Dioxide 25 mmol/L (22-29) 04/23/24 10:58 Anion Gap 16.1 (5-19) 04/23/24 10:58 BUN 19 mg/dL (8-23) 04/23/24 10:58 Creatinine 0.9 mg/dL (0.7-1.2) 04/23/24 10:58 GFR Calculation Not Reportable 04/23/24 10:58 Glucose 175 mg/dL (65-115) H 04/23/24 10:58 Calculated Osmolality 289 mOsm/kg (285-295) 04/23/24 10:58 Lactic Acid 1.5 mmol/L (0.5-2.2) 04/23/24 10:58 Calcium 9.5 mg/dL (8.5-10.5) 04/23/24 10:58 Total Bilirubin 0.5 mg/dL (0.15-1.2) 04/23/24 10:58 AST 15 U/L (0-40) 04/23/24 10:58 ALT 17 U/L (0-41) 04/23/24 10:58 Alkaline Phosphatase 87 U/L (40-130) 04/23/24 10:58 C-Reactive Protein 41.5 mg/L (0.0-4.9) H 04/23/24 10:58 Total Protein 7.2 g/dL (6.6-8.7) 04/23/24 10:58 Albumin 4.2 g/dL (3.5-5.2) 04/23/24 10:58 Globulin 3.0 g/dL (1.3-4.6) 04/23/24 10:58 Urine Color Yellow (Yellow) 04/23/24 11:38 Urine Appearance Clear (CLEAR) 04/23/24 11:38 Urine pH 5.0 (5-7) 04/23/24 11:38 Ur Specific [place] 1.014 (1.005-1.030) 04/23/24 11:38 Urine Protein Negative (Negative) 04/23/24 11:38 Urine Glucose (UA) Negative (Normal) 04/23/24 11:38 Urine Ketones Negative (Negative) 04/23/24 11:38 Urine Blood Negative (Negative) 04/23/24 11:38 Urine Nitrate Negative (Negative) 04/23/24 11:38 Urine Bilirubin Negative (Negative) 04/23/24 11:38 Urine Urobilinogen 0.2 mg/dL (Negative) 04/23/24 11:38 Ur Leukocyte Esterase Trace (Negative) A 04/23/24 11:38 Urine RBC 0-2 /hpf (0-2) 04/23/24 11:38 Urine WBC 0-5 /hpf (0-5) 04/23/24 11:38 Ur Squamous Epith Cells 0-5 /hpf (0-5) 04/23/24 11:38 Amorphous Sediment Not Reportable 04/23/24 11:38 Urine Bacteria None seen /hpf (NONE) 04/23/24 11:38 Hyaline Casts 0-4 /lpf H 04/23/24 11:38 All radiology interpretation(s) finalized by discharge Discharge Plan Discharge Patient Disposition: Home Clinical Impression: Diverticulitis Condition: Stable Prescriptions: New metronidazole 500 mg tablet 500 mg PO Q8H Qty: 30 0RF ciprofloxacin HCl 500 mg tablet 500 mg PO Q12H Qty: 20 0RF No Action acetaminophen [Tylenol 8 Hour] 650 mg tablet extended release 650 mg PO .daily cholecalciferol (vitamin D3) 50 mcg (2,000 unit) tablet 100 mcg PO DAILY metronidazole [Metrogel] 1 % gel 1 applic topical DAILY Qty: 60 0RF metoprolol succinate 25 mg tablet extended release 24 hr 12.5 mg PO DAILY Qty: 90 3RF lisinopril 20 mg tablet 20 mg PO DAILY Qty: 90 3RF simvastatin 20 mg tablet 20 mg PO DAILY Qty: 90 3RF (DME) oxygen-air delivery systems Device See Rx Instructions .Route Rx Instructions: As directed (DME) CPAP See Rx Instructions .Route .MEDSUPPLY Qty: 1 0RF Rx Instructions: Auto titration (DME) FreeStyle Lite Strips Strip See Rx Instructions .Route Qty: 100 12RF Rx Instructions: As directed fluticasone propionate 50 mcg/actuation spray,suspension 1 spray INTRANASAL BID PRN (Reason: Allergy Symptoms) Qty: 16 6RF sildenafil 100 mg tablet See Rx Instructions .ROUTE .COMPLEX Qty: 30 3RF Dose Instruction: TAKE 1 TABLET DAILY NEEDED FOR SEXUAL ACTIVITY, ADMINISTER 30 MINUTES TO 4 HOURS BEFORE ACTIVITY Rx Instructions: TAKE 1 TABLET DAILY NEEDED FOR SEXUAL ACTIVITY, ADMINISTER 30 MINUTES TO 4 HOURS BEFORE ACTIVITY aspirin [Abdoulaye Low Dose Aspirin] 81 mg Tablet,Delayed Release (Dr/Ec) 81 mg PO DAILY multivitamin [Multi-Daily] Tablet 1 tab PO DAILY vitamin B complex [B Complex] Capsule 1 cap PO DAILY coenzyme Q10 [CoQ-10] 100 mg Capsule 100 mg PO BID Aye Vasquez (zinc glu) 60-5-12.5 mg Lozenge 1 prakash PO DAILY metformin 500 mg tablet extended release 24 hr 1,000 mg PO BID Discharge Orders: Discharge ED (Routine); Ordered 04/23/24 Ordered By: Alberto Guzman Referrals: Hui Ulloa FNP [Primary Care Provider] - 1 week Patient Instructions: Diverticulitis (ED) Activity Restrictions/Additional Instructions: Thank you for choosing [facility] for your healthcare needs today. Please realize that you were seen in the emergency department and that we are providing you with an emergency medical screening exam and this may not be a complete and all exclusive of all testing and/or medical workup we may need to determine your element or severity of your illness. It is very important that you follow-up as instructed with your primary care provider or specialist for the additional evaluation and to discuss your medical treatment plan. You may return to the emergency department should you have concerns or if your condition changes or worsens in any way. Coding Level of Care Code ED [employer] for Sean Grace
[2024-04-23 12:38] LABS: Bilirubin Urine Negative (Negative); Blood Urine Negative (Negative); Glucose Urine UA Negative (Normal); Ketones Urine Negative (Negative); Leukocyte Esterase Urine Trace (Negative); Nitrate Urine Negative (Negative); Protein Urine Negative (Negative); Specific Gravity, Urine 1.014 (1.005-1.030); Urine Appearance Clear (CLEAR); Urine Color Yellow (Yellow); Urobilinogen Urine 0.2 mg/dL (Negative)
[2024-04-23 12:43] LABS: Bacteria Urine None Seen /hpf; Hyaline Casts Urine 0-4 /lpf; RBC Urine 0-2 /hpf (0-2); Squamous Epithelial Cell Urine 0-5 /hpf (0-5); WBC Urine 0-5 /hpf (0-5)
[2024-04-23] MEDS: ciprofloxacin 500 mg Tablet PO (14:53)
[2024-04-23] MEDS: metroNIDAZOLE 500 MG Tablet PO (14:53)
== END 2024-04-23 15:10 | disposition home or self-care (01) ==
PROVIDERS: Emergency Medicine; Emergency Provider Emergency Medicine; PCP Nurse Practitioner Family
DX: K57.92 Diverticulitis of intestine, part unspecified, without perforation or abscess without bleeding (principal); Z79.82 Long term (current) use of aspirin; Z79.84 Long term (current) use of oral hypoglycemic drugs; Z87.891 Personal history of nicotine dependence; E78.5 Hyperlipidemia, unspecified; E11.9 Type 2 diabetes mellitus without complications
CPT/HCPCS: 36415; 74177; 80053; 81001; 83605; 85025; 86140; 99285

== ENCOUNTER → 2024-07-04 13:37 | Outpatient (BNVA) | payer MEDICARE, OTHER, SELFPAY | PROVIDERS: PCP Nurse Practitioner Family; Visit Provider Internal Medicine | DX: I10 Essential (primary) hypertension (principal); Z95.3 Presence of xenogenic heart valve; E78.5 Hyperlipidemia, unspecified; E11.9 Type 2 diabetes mellitus without complications; I35.0 Nonrheumatic aortic (valve) stenosis | CPT/HCPCS: 99214 ==

== ENCOUNTER → 2024-07-24 11:45 | Outpatient (BNVA) | payer MEDICARE, OTHER, SELFPAY | PROVIDERS: PCP Nurse Practitioner Family; Visit Provider Nurse Practitioner Family | DX: I10 Essential (primary) hypertension (principal); E11.9 Type 2 diabetes mellitus without complications; R53.83 Other fatigue; E55.9 Vitamin D deficiency, unspecified | CPT/HCPCS: 80053; 80061; 82306; 83036; 85025 ==

== ENCOUNTER → 2024-07-31 14:28 | Outpatient (BNVA) | payer MEDICARE, OTHER, SELFPAY | PROVIDERS: PCP Nurse Practitioner Family; Referring Provider Nurse Practitioner Family; Visit Provider Student in an Organized Health Care Education/Training Program | DX: Z12.11 Encounter for screening for malignant neoplasm of colon (principal) | CPT/HCPCS: 99024; 99204 ==

== ENCOUNTER 2024-08-22 08:59 | Day surgery (SDC) | payer MEDICARE, OTHER, SELFPAY ==
--- NOTE | 2024-08-22 09:05 | ANES.PREANE2 ---
Pre-Anesthetic Assessment Height/Weight: Height 1.75 m Preop Diagnosis: SCreen Operation Date: 08/22/24 10:30 Proposed Procedures p Colonoscopy(Not Applicable) - Marcos Araiza MD Familial anesthetic complications: none Was Beta Emily taken within 24 hours: Yes Was Clonidine taken within 24 hours: N/A Social No alcohol and No tobacco Exam alert, oriented x 3, clear to auscultation bilaterally and regular rate & rhythm (prosthetic valve) Airway Mallampati: Class II Dentition: full Pulmonary Sleep Apnea CV/HEM Hypertension and Murmur Ao valve replaced porcine, last Echo shows EF 60%, valve area 1.89cm squared. Grade 1 diastolic dysfunction. MR no climate change risk assessor last several years. None reported Hepatic None reported GI None reported Metabolic Diabetes Mellitus and Hyperlipidemia [facility] None reported Neuropsych None reported Anesthetic Plan ASA status: 3 Anesthesia: MAC Risk of > 500 ml blood loss (7ml/kg in children): No Medications/Allergies Home Medications ?Medication ?Instructions ?Recorded ?Confirmed ?Last Taken ?Type acetaminophen 650 mg 650 mg PO .daily 06/27/20 08/16/24 08/16/24 History tablet,extended release (Tylenol 8 Hour) CPAP #1 ea 04/22/22 08/16/24 Unknown Rx metronidazole 1 % topical gel 1 applic topical DAILY #60 grams 05/05/23 08/16/24 Unknown Rx (Metrogel) lisinopril 20 mg tablet 20 mg PO DAILY #90 tabs 11/15/23 08/16/24 08/16/24 Rx metoprolol succinate 25 mg 12.5 mg (1/2 x 25 mg) PO DAILY #90 11/15/23 08/16/24 08/16/24 Rx tablet,extended release 24 hr tabs sildenafil 100 mg tablet See Rx Instructions .Route 11/17/23 08/16/24 Unknown Rx .COMPLEX #30 tabs aspirin 81 mg tablet,delayed 81 mg PO DAILY heart 04/23/24 08/16/24 08/16/24 History release (Abdoulaye Low Dose Aspirin) multivitamin 1 tab PO DAILY 04/23/24 08/16/24 08/16/24 History vitamin C 60 mg-zinc gluconate 5 1 prakash PO DAILY 04/23/24 08/16/24 08/16/24 History mg-elderberry fruit 12.5 mg lozenges (Sambucus Elderberry (zinc gluconate)) metformin 500 mg tablet,extended 1,000 mg PO BID 04/27/24 08/16/24 08/16/24 History release 24 hr simvastatin 20 mg tablet 20 mg PO DAILY #90 tabs 06/05/24 08/16/24 08/16/24 Rx fluticasone propionate 50 See Rx Instructions .Route 06/06/24 08/16/24 08/16/24 Rx mcg/actuation nasal .COMPLEX #16 grams spray,suspension blood sugar diagnostic (FreeStyle #100 ea 07/10/24 08/16/24 Unknown Rx Lite Strips) Allergies Allergy/AdvReac Type Severity Reaction Status Date / Time hydralazine Allergy Severe shock Verified 07/31/24 14:46 [facility] Anesthesia Medical History Dyslipidemia BETO (obstructive sleep apnea) Hypertension Controlled Obesity Diabetes Aortic stenosis, severe 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 Surgical History H/O aortic valve replacement with porcine valve Family History Father Diabetes Social History Smoking and tobacco/nicotine status: former use of tobacco/nicotine Quit status (tobacco/nicotine): has quit using Year quit tobacco: 1987 Alcohol intake: current Alcohol intake frequency: few times a week Alcohol type: beer Substance/Drug Use: never Lives independently: Yes Household members: spouse Marital status: service: Yes branch: [employer] Current occupational status: retired Current gender identity: Male Data Anesthesia Cardiac Studies: Echocardiogram 04/20/24 Echocardiogram Ultrasound 07/24/20 Sestamibi Stress Test (Cardiology) 04/24/22 Holter Monitor 11/20/21
[2024-08-22 09:15] VITALS: BP 149/86; PULSE 67; RESP 18; TEMP 37.1; O2SAT 96
--- NOTE | 2024-08-22 09:19 | ANES.PREANE2 ---
Pre-Anesthetic Assessment Height/Weight: Height 1.75 m Temp Pulse Resp BP Pulse Ox O2 Del Method 98.7 F 67 18 149/86 96 Room Air 08/22/24 09:15 08/22/24 09:15 08/22/24 09:15 08/22/24 09:15 08/22/24 09:15 08/22/24 09:15 Preop Diagnosis: SCreen Operation Date: 08/22/24 10:30 Proposed Procedures p Colonoscopy(Not Applicable) - Marcos Araiza MD Medications/Allergies Home Medications ?Medication ?Instructions ?Recorded ?Confirmed ?Last Taken ?Type acetaminophen 650 mg 650 mg PO .daily 06/27/20 08/16/24 08/21/24 History tablet,extended release (Tylenol 8 Hour) CPAP #1 ea 04/22/22 08/16/24 Unknown Rx metronidazole 1 % topical gel 1 applic topical DAILY #60 grams 05/05/23 08/16/24 08/21/24 Rx (Metrogel) lisinopril 20 mg tablet 20 mg PO DAILY #90 tabs 11/15/23 08/16/24 08/21/24 Rx metoprolol succinate 25 mg 12.5 mg (1/2 x 25 mg) PO DAILY #90 11/15/23 08/16/24 08/21/24 Rx tablet,extended release 24 hr tabs sildenafil 100 mg tablet See Rx Instructions .Route 11/17/23 08/22/24 08/20/24 Rx .COMPLEX #30 tabs aspirin 81 mg tablet,delayed 81 mg PO DAILY heart 04/23/24 08/16/24 08/20/24 History release (Abdoulaye Low Dose Aspirin) multivitamin 1 tab PO DAILY 04/23/24 08/16/24 08/21/24 History vitamin C 60 mg-zinc gluconate 5 1 prakash PO DAILY 04/23/24 08/16/24 08/21/24 History mg-elderberry fruit 12.5 mg lozenges (Sambucus Elderberry (zinc gluconate)) metformin 500 mg tablet,extended 1,000 mg PO BID 04/27/24 08/16/24 08/21/24 History release 24 hr simvastatin 20 mg tablet 20 mg PO DAILY #90 tabs 06/05/24 08/16/24 08/21/24 Rx fluticasone propionate 50 See Rx Instructions .Route 06/06/24 08/16/24 08/16/24 Rx mcg/actuation nasal .COMPLEX #16 grams spray,suspension blood sugar diagnostic (FreeStyle #100 ea 07/10/24 08/16/24 Unknown Rx Lite Strips) Allergies Allergy/AdvReac Type Severity Reaction Status Date / Time hydralazine Allergy Severe shock Verified 07/31/24 14:46 [facility] Anesthesia Medical History Dyslipidemia BETO (obstructive sleep apnea) Hypertension Controlled Obesity Diabetes Aortic stenosis, severe 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 Surgical History H/O aortic valve replacement with porcine valve Family History Father Diabetes Social History Smoking and tobacco/nicotine status: former use of tobacco/nicotine Quit status (tobacco/nicotine): has quit using Year quit tobacco: 1987 Alcohol intake: current Alcohol intake frequency: few times a week Alcohol type: beer Substance/Drug Use: never Lives independently: Yes Household members: spouse Marital status: service: Yes branch: [employer] Current occupational status: retired Current gender identity: Male Data Anesthesia Cardiac Studies: Echocardiogram 04/20/24 Echocardiogram Ultrasound 07/24/20 Sestamibi Stress Test (Cardiology) 04/24/22 Holter Monitor 11/20/21
[2024-08-22 09:23] VITALS: BMI 30.5
[2024-08-22 09:29] LABS: Glucose Point of Care 147 mg/dL (70-110)
[2024-08-22] MEDS: sodium chloride 0.9% 1,000 ML 15 ML IV (09:35)
--- NOTE | 2024-08-22 09:41 | W.PM.OPSUD ---
Surgery/Procedure H&P Update DATE OF PROCEDURE: August 22, 2024 DATE H&P PERFORMED: 07/31/24 H&P UPDATE INFORMATION: I have reviewed H&P completed within last 30 days, I have examined patient prior to procedure and No changes to prior documentation PREOP DIAGNOSIS: SCreen PLANNED PROCEDURE: Operation Date: 08/22/24 10:30 Proposed Procedures p Colonoscopy(Not Applicable) - Marcos Araiza MD
[2024-08-22 10:05] VITALS: BP 140/81; PULSE 64; RESP 16; TEMP 36.1; O2SAT 95
[2024-08-22 10:19] VITALS: BP 134/85; PULSE 64; RESP 16; O2SAT 93
--- NOTE | 2024-08-22 10:40 | ANE.PACU2 ---
Inpatient post-anesthesia follow up: Airway intact: Yes Vital signs: Temperature 97.0 F Pulse Rate 64 Respiratory Rate 16 Blood Pressure 134/85 Pulse Oximetry 93 Oxygen Delivery Me thod Room Air Oxygen Flow Rate Fraction of Inspir ed Oxygen Hydration adequate: Yes Nausea and vomiting: No Pain level: 1 Mental status: Baseline
== END 2024-08-22 10:40 | disposition home or self-care (01) ==
PROVIDERS: PCP Nurse Practitioner Family; Visit Provider Student in an Organized Health Care Education/Training Program
PROC: 0DJD8ZZ Inspection of Lower Intestinal Tract, Via Natural or Artificial Opening Endoscopic (ICD-10-PCS; CPT 45378; principal; 2024-08-22 10:30)
DX: K57.30 Diverticulosis of large intestine without perforation or abscess without bleeding (principal); E11.9 Type 2 diabetes mellitus without complications; E78.5 Hyperlipidemia, unspecified; I10 Essential (primary) hypertension; R01.1 Cardiac murmur, unspecified; Z79.899 Other long term (current) drug therapy; Z79.82 Long term (current) use of aspirin; Z88.8 Allergy status to other drugs, medicaments and biological substances; Z87.891 Personal history of nicotine dependence; Z95.2 Presence of prosthetic heart valve; Z79.84 Long term (current) use of oral hypoglycemic drugs
CPT/HCPCS: 36416; 45378; 82962; J2704; J7030

== ENCOUNTER → 2024-08-23 15:05 | Outpatient (BNVA) | payer MEDICARE, OTHER, SELFPAY | PROVIDERS: PCP Nurse Practitioner Family; Visit Provider Nurse Practitioner Family | DX: E55.9 Vitamin D deficiency, unspecified (principal) | CPT/HCPCS: 82652 ==

== ENCOUNTER → 2024-09-04 14:07 | Outpatient (BNVA) | payer MEDICARE, OTHER, SELFPAY | PROVIDERS: PCP Nurse Practitioner Family; Visit Provider Nurse Practitioner Family | DX: D36.12 Benign neoplasm of peripheral nerves and autonomic nervous system, upper limb, including shoulder (principal); L72.0 Epidermal cyst; L57.8 Other skin changes due to chronic exposure to nonionizing radiation; L81.4 Other melanin hyperpigmentation; D22.5 Melanocytic nevi of trunk; L82.1 Other seborrheic keratosis; D48.5 Neoplasm of uncertain behavior of skin | CPT/HCPCS: 11102; 99203 ==

== ENCOUNTER → 2024-09-12 08:07 | Outpatient (BNVA) | payer MEDICARE, OTHER, SELFPAY | PROVIDERS: PCP Nurse Practitioner Family; Visit Provider Dermatology | DX: C44.319 Basal cell carcinoma of skin of other parts of face (principal); L82.0 Inflamed seborrheic keratosis; R20.8 Other disturbances of skin sensation; L53.8 Other specified erythematous conditions; L29.89 Other pruritus | CPT/HCPCS: 13132; 17110; 17311 ==

== ENCOUNTER → 2024-11-16 08:26 | Outpatient (BNVA) | payer MEDICARE, OTHER, SELFPAY | PROVIDERS: PCP Nurse Practitioner Family; Visit Provider Nurse Practitioner Family | DX: K76.0 Fatty (change of) liver, not elsewhere classified (principal); R53.83 Other fatigue; I10 Essential (primary) hypertension; E11.9 Type 2 diabetes mellitus without complications | CPT/HCPCS: 80053; 80061; 82306; 83036; 84439; 84443; 85025 ==

== ENCOUNTER 2025-01-10 10:26 | Outpatient (CLI) | payer MEDICARE, OTHER, SELFPAY ==
--- NOTE | 2025-01-10 10:31 | XR_ITS ---
WS: [id number] Chest 2 views, 01/10/2025 Clinical Data: R06.00 - Dyspnea, unspecified Comparison: Portable chest, 05/01/2019 Findings: No nodules, masses or effusions are seen. The heart is normal. The pulmonary vascularity is not increased. No pneumonia or pneumothorax is seen. Midline sternotomy sutures are present and there is an artificial cardiac valve. The aortic arch shows calcification. XR/XR chest 2V* [id number] Impression: Atherosclerosis with artificial cardiac valve.
== END 2025-01-10 10:27 | disposition home or self-care (01) ==
LOC: RAD 10:28
PROVIDERS: PCP Nurse Practitioner Family; Visit Provider Nurse Practitioner Family
DX: R06.00 Dyspnea, unspecified (principal); I70.0 Atherosclerosis of aorta; Z95.2 Presence of prosthetic heart valve
CPT/HCPCS: 71046

== ENCOUNTER → 2025-01-15 14:04 | Outpatient (BNVA) | payer MEDICARE, OTHER, SELFPAY | PROVIDERS: PCP Nurse Practitioner Family; Visit Provider Nurse Practitioner Family | DX: E11.9 Type 2 diabetes mellitus without complications (principal); K76.0 Fatty (change of) liver, not elsewhere classified; R53.83 Other fatigue | CPT/HCPCS: 82607; 82962; 83550 ==

== ENCOUNTER → 2025-01-16 10:45 | Outpatient (BNVA) | payer MEDICARE, OTHER, SELFPAY | PROVIDERS: PCP Nurse Practitioner Family; Visit Provider Nurse Practitioner Family | DX: D36.12 Benign neoplasm of peripheral nerves and autonomic nervous system, upper limb, including shoulder (principal); L57.8 Other skin changes due to chronic exposure to nonionizing radiation; L81.4 Other melanin hyperpigmentation; Z08 Encounter for follow-up examination after completed treatment for malignant neoplasm; Z85.828 Personal history of other malignant neoplasm of skin; L72.0 Epidermal cyst | CPT/HCPCS: 10060; 99213 ==

== ENCOUNTER 2025-04-16 10:38 | Outpatient (CLI) | payer MEDICARE, OTHER, SELFPAY ==
--- NOTE | 2025-04-16 11:15 | USCV_ITS ---
Nii Hammond Age: 74 Gender: M : 1950 Exam Date: 04/16/2025 11:26 Ordering Phys: Thomas Rey M.D ([email or web address]) Technologist: [place] [facility] [place]ication: ao pros BP: 120 / 76 HR: 65 Rhythm: Sinus Technical Quality: Adequate MEASUREMENTS (Male / Female) Normal Values 2D ECHO LV Diastolic Diameter PLAX 4.7 cm 4.2 - 5.9 / 3.9 - 5.3 cm IVS Diastolic Thickness 1.5 cm 0.6 - 1.0 / 0.6 - 0.9 cm IVS Systolic Thickness 2.4 cm LVPW Diastolic Thickness 1.6 cm 0.6 - 1.0 / 0.6 - 0.9 cm LVPW Systolic Thickness 0.3 cm LVOT Diameter 2.0 cm LV Ejection Fraction 2D Teich 37.3 % LV Ejection Fraction MOD 4C 65.0 % LV Ejection Fraction MOD 2C 62.1 % LV Ejection Fraction 2C AL 63.7 % LA Diameter 5.0 cm RA Systolic Volume 4C AL 53.1 ml RA Systolic Volume 4C MOD 50.7 ml Aorta at Sinotubular Diameter 3.5 cm IVC Diameter 2.5 cm M-MODE LA Ao Ratio MM 1.2 AV Cusp Separation MM 1.9 cm DOPPLER AV Peak Velocity 199.7 cm/s LVOT Peak Velocity 70.0 cm/s AV Area Cont Eq vti 1.6 cm squared AV Area Cont Eq pk 1.1 cm squared MV Peak Velocity 143.0 cm/s MV Area PHT 2.5 cm squared Mitral E to A Ratio 0.7 TR Peak Velocity 327.0 cm/s TR Peak Gradient 42.8 mmHg TV Peak E Velocity 72.0 cm/s PV Peak Velocity 133.0 cm/s FINDINGS Left Ventricle Normal left ventricular size, systolic function and wall thickness, with no regional wall motion abnormalities. Left ventricular ejection fraction is estimated at 60 %. Grade I/IV diastolic dysfunction (abnormal relaxation filling pattern), normal to mildly elevated filling pressures. Right Ventricle Normal right ventricular size and systolic function. Right Atrium Normal right atrial size. Left Atrium Normal left atrial size. IA Septum Normal appearance of the interatrial septum. Mitral Valve Moderately thickened mitral valve. Moderate mitral annular calcification. No mitral valve stenosis. Trace mitral valve regurgitation. Aortic Valve Mild aortic valve calcification. No aortic valve stenosis. Trace aortic valve regurgitation. Tricuspid Valve [id number] tricuspid valve regurgitation. Pulmonic Valve Normal pulmonic valve structure. No pulmonic valve stenosis or regurgitation. Pericardium No pericardial effusion. Aorta Normal diameter of the aortic root and ascending thoracic aorta. IVC Normal IVC diameter. CONCLUSIONS Normal left ventricular size, systolic function and wall thickness, with no regional wall motion abnormalities. Left ventricular ejection fraction is estimated at 60 %. Grade I/IV diastolic dysfunction (abnormal relaxation filling pattern), normal to mildly elevated filling pressures. Moderately thickened mitral valve. Moderate mitral annular calcification. No mitral valve stenosis. Trace mitral valve regurgitation. Mild aortic valve calcification. No aortic valve stenosis. Trace aortic valve regurgitation. There is no pericardial effusion. Right atrial pressure is around 10 mm of mercury. Min Jiménez MD (Electronically Signed) Final Date: 25 April 2025 22:01 S
== END 2025-04-16 10:39 | disposition home or self-care (01) ==
LOC: RAD 10:39
PROVIDERS: PCP Nurse Practitioner Family; Visit Provider Internal Medicine
DX: I35.0 Nonrheumatic aortic (valve) stenosis (principal); R93.1 Abnormal findings on diagnostic imaging of heart and coronary circulation; I34.81 Nonrheumatic mitral (valve) annulus calcification; I35.8 Other nonrheumatic aortic valve disorders; I07.1 Rheumatic tricuspid insufficiency
CPT/HCPCS: 93306